=== PATIENT | male | born 1955 | race African-American/Black ===

== ENCOUNTER 2019-12-09 12:30 | Inpatient (IN) | payer SELFPAY ==
[2019-12-09 13:26] LABS: ABSOLUTE LYMPHOCYTES (AUTO) 1.5 10^3/uL (0.5-4.7); ABSOLUTE MONOCYTES (AUTO) 0.8 10^3/uL (0.1-1.4); ABSOLUTE NEUT (AUTO) 5.8 10^3/uL (1.7-8.2); BASOPHILS % (AUTO) 0.2 % (0-2); EOSINOPHILS % (AUTO) 0.2 % (0-6); HEMATOCRIT 35.6 % (37.9-51.0); HEMOGLOBIN 11.7 g/dL (13.5-17.0); LYMPHOCYTES % (AUTO) 18.4 % (13-45); MEAN CORPUSCULAR HEMOGLOBIN 30.2 pg (27.0-33.4); MEAN CORPUSCULAR HGB CONC 32.9 g/dL (32.0-36.0); MEAN CORPUSCULAR VOLUME 92 fl (80-97); MONOCYTES % (AUTO) 10.2 % (3-13); PLATELET COUNT 153 10^3/uL (150-450); RED BLOOD COUNT 3.88 10^6/uL (4.35-5.55); RED CELL DISTRIBUTION WIDTH 16.3 % (11.5-14.0); TOTAL CELLS COUNTED % (AUTO) 100 %; WHITE BLOOD COUNT 8.1 10^3/uL (4.0-10.5)
--- NOTE | 2019-12-09 13:31 | ER Document Report ---
ED GI Bleed / Rectal Pain - General Chief Complaint: Rectal Bleeding Stated Complaint: BLOODY STOOLS Time Seen by Provider: 12/09/19 13:18 Mode of Arrival: Ambulatory Information source: Patient Notes: Patient is a 64-year-old male comes emergency room complaining of black tarry stools and vomiting. Patient states symptoms started approximately 2 days ago. He has noticed that his stools have been very tacky and black appearing. He also states he has been throwing up some blood mixed with his vomitus. Complains of dizzy spells when going from a sitting position to standing or laying to standing. Patient denies taking any anticoagulants with the exception of a baby aspirin a day. He has a past medical history pertinent for hypertension but has not seen a physician in approximately 2 years. He is currently taking no prescribed medications. He admits to smoking. He also admits to alcohol use stating he drinks approximately 2 to 3 pints of wine every other day or so and an occasional beer. He denies any chest pain but states he has had some shortness of breath recently. TRAVEL OUTSIDE OF THE [place] IN LAST 30 DAYS: No - HPI Patient complains to provider of: Coffee ground emesis, Dark/tarry stools Onset: Other - 2 days Timing/Duration: Constant Quality of pain: No pain Severity of symptoms: Moderate Pain Level: 2 Vomiting X: 3 Diarrhea X: 0 Emesis description: Coffee grounds Rectal bleeding: Blood mixed w/ stool Dark Stools: Black, Tarry Rectal foreign body: No Rectal pain with intercourse: No Use of: ASA Associated symptoms: denies: Back pain, Abdominal pain, Constipation Exacerbated by: Sitting, Standing, Movement Similar symptoms previously: No Recently seen / treated by doctor: No - Related Data Allergies/Adverse Reactions: No Known Allergies Allergy (Verified 07/18/15 11:50) Home Medications: albbuterol, ASA Past Medical History - General Information source: Patient - Social History Smoking Status: Current Every Day Smoker Cigarette use (# per day): Yes Chew tobacco use (# tins/day): No Smoking Education Provided: No Frequency of alcohol use: Heavy Drug Abuse: Marijuana Family History: Reviewed & Not Pertinent Patient has suicidal ideation: No Patient has homicidal ideation: No - Past Medical History Cardiac Medical History: Reports: Hx Hypertension Denies: Hx Coronary Artery Disease, Hx Heart Attack Pulmonary Medical History: Reports: Hx COPD Denies: Hx Asthma, Hx Bronchitis, Hx Pneumonia Neurological Medical History: Denies: Hx Cerebrovascular Accident, Hx Seizures Endocrine Medical History: Denies: Hx Diabetes Mellitus Type 2 GI Medical History: Denies: Hx Gastritis, Hx Gastroesophageal Reflux Disease, Hx Hepatitis, Hx Hiatal Hernia, Hx Ulcer Musculoskeletal Medical History: Denies Hx Arthritis, Denies Hx Gout - denies previous history Skin Medical History: Denies Hx Cellulitis, Denies Hx MRSA Psychiatric Medical History: Reports: Hx Anxiety Infectious Medical History: Denies: Hx Hepatitis Past Surgical History: Reports: Hx Orthopedic Surgery - left foot. Denies: Hx Open Heart Surgery, Hx Pacemaker - Immunizations Hx Diphtheria, Pertussis, Tetanus Vaccination: No Review of Systems - Review of Systems Constitutional: See HPI, Weakness EENT: No symptoms reported Cardiovascular: No symptoms reported, Heart racing Respiratory: Short of breath Gastrointestinal: Vomiting, Poor appetite, Poor fluid intake, Black stools Genitourinary: No symptoms reported Male Genitourinary: No symptoms reported Musculoskeletal: No symptoms reported Skin: No symptoms reported Hematologic/Lymphatic: No symptoms reported Neurological/Psychological: No symptoms reported Physical Exam - Vital signs Vitals: Temp Pulse Resp BP Pulse Ox 98.3 F 128 H 19 115/91 H 98 12/09/19 12:32 12/09/19 12:32 12/09/19 12:32 12/09/19 12:32 12/09/19 12:32 Interpretation: Hypotensive, Tachycardic - Notes Notes: PHYSICAL EXAMINATION: GENERAL: Patient is a frail-appearing 64-year-old male who is in no apparent distress on physical exam however he does appear to be somewhat weakened state. HEAD: Atraumatic, normocephalic. EYES: Pupils equal round and reactive to light, extraocular movements intact, sclera anicteric, conjunctiva are normal. ENT: Nares patent, oropharynx shows somewhat dry oral mucosa.. NECK: Normal range of motion, supple without lymphadenopathy LUNGS: Breath sounds clear to auscultation bilaterally and equal. No wheezes rales or rhonchi. HEART: On examination patient displayed a tachycardic presentation of anywhere between 125 to 140 bpm depending on activity. Any movement caused it to increase. ABDOMEN: Soft, nontender, nondistended abdomen. No guarding, no rebound. No masses appreciated. Examination patient's rectal area shows there to be what appears to be partial rectal prolapse on examination digital rectal did show a large amount of maroonish to tarry black stools. Musculoskeletal: Normal range of motion, no pitting or edema. No cyanosis. NEUROLOGICAL: Normal speech, normal gait. Normal sensory, motor exams PSYCH: Normal mood, normal affect. SKIN: Warm, Dry, normal turgor, no rashes or lesions noted. - General General appearance: Alert In distress: None - HEENT Head: Normocephalic, Atraumatic Eyes: Normal Pupils: PERRL - Respiratory Respiratory status: No respiratory distress Chest status: Nontender Breath sounds: Decreased air movement. No: Rales, Rhonchi, Wheezing Chest palpation: Normal - Cardiovascular Rhythm: Regular Heart sounds: Normal auscultation Murmur: No - Abdominal Inspection: Normal Distension: No distension Bowel sounds: Normal Tenderness: Nontender Organomegaly: No organomegaly - Back Back: Normal, Nontender - Extremities General upper extremity: Normal inspection, Nontender, Normal color, Normal ROM, Normal temperature General lower extremity: Normal inspection, Nontender, Normal color, Normal ROM, Normal temperature, Normal weight bearing. No: Kaykay's sign - Neurological Neuro grossly intact: Yes Cognition: Normal Orientation: AAOx4 Robin Coma Scale Eye Opening: Spontaneous Robin Coma Scale Verbal: Oriented Robin Coma Scale Motor: Obeys Commands Mckean Coma Scale Total: 15 Speech: Normal Motor strength normal: LUE, RUE, LLE, RLE Sensory: Normal - Psychological Associated symptoms: Normal affect, Normal mood - Skin Skin Temperature: Warm Skin Moisture: Dry Skin Color: Normal Course - Re-evaluation Re-evalutation: 12/09/19 16:57 After receiving the first liter fluid patient's vital signs stabilized he is heart rate came down to below 100 and his blood pressure went up from 110 systolic 225/75. - Vital Signs Vital signs: Temp Pulse Resp BP Pulse Ox 98.5 F 83 16 127/54 H 99 12/09/19 23:24 12/09/19 23:24 12/09/19 23:24 12/09/19 23:24 12/09/19 23:24 - Laboratory Result Diagrams: 12/09/19 19:47 12/09/19 12:43 Laboratory results interpreted by me: 12/09/19 12/09/19 12:43 12:43 RBC 3.88 L Hgb 11.7 L Hct 35.6 L RDW 16.3 H Sodium 136.9 L Potassium 3.4 L BUN 36 H Glucose 136 H AST 16 L Albumin 3.1 L - Diagnostic Test Radiology reviewed: Reports reviewed - CT of the abdomen pelvis with IV contrast showed no acute findings. Chest x-ray also showed no acute findings. - EKG Interpretation by Me Rate: Tachycardia When compared to previous EKG there are: No significant change - Transfer of Care Notes: 12/09/19 16:59 Prior to calling the hospitalist the general surgeon Dr. Hernadez was in the emergency room so I discussed patient's care with him. He has been informed and suggested that we can go ahead and admit to the hospitalist and consult him. He will see patient. Discharge - Discharge Clinical Impression: Upper GI bleed Condition: Stable Disposition: ADMITTED INPATIENT Admitting Provider: Aristeo (Hospitalist)
[2019-12-09 13:33] LABS: ALBUMIN 3.1 g/dL (3.5-5.0); ALKALINE PHOSPHATASE 67 U/L (38-126); ANION GAP 12 (5-19); ASPARTATE AMINO TRANSFERASE 16 U/L (17-59); BILIRUBIN,TOTAL 0.5 mg/dL (0.2-1.3); BLOOD UREA NITROGEN 36 mg/dL (7-20); CALCIUM 8.8 mg/dL (8.4-10.2); CARBON DIOXIDE 26 mmol/L (22-30); CHLORIDE 99 mmol/L (98-107); GLUCOSE 136 mg/dL (75-110); POTASSIUM 3.4 mmol/L (3.6-5.0); TOTAL PROTEIN 6.9 g/dL (6.3-8.2)
[2019-12-09] MEDS ORDERED: PANTOPRAZOLE SODIUM 40 MG VIAL IV ONE (13:42)
[2019-12-09] MEDS ORDERED: NORMAL SALINE 1000 ML 1,000 ML IV ONE (13:44)
[2019-12-09] MEDS ORDERED: PANTOPRAZOLE SODIUM 40 MG VIAL IV PRN (13:48)
--- NOTE | 2019-12-09 14:39 | RADIOLOGY REPORT (SQ) ---
EXAM DESCRIPTION: CHEST SINGLE VIEW IMAGES COMPLETED DATE/TIME: 12/09/2019 2:25 pm REASON FOR STUDY: SOB COMPARISON: PA and lateral views of the chest from 12/22/2015. EXAM PARAMETERS: NUMBER OF VIEWS: One view. TECHNIQUE: An AP view of the chest was obtained. RADIATION DOSE: NA LIMITATIONS: None. FINDINGS: LUNGS AND PLEURA: No consolidation, pleural effusion or pneumothorax. MEDIASTINUM AND HILAR STRUCTURES: No mediastinal or hilar contour abnormality. HEART AND VASCULAR STRUCTURES: The cardiac silhouette and pulmonary vasculature are within normal marsh its. BONES: No acute findings. HARDWARE: None in the chest. OTHER: No other finding. IMPRESSION: No acute cardiopulmonary process. TECHNICAL DOCUMENTATION: JOB ID: [id number] 2010 [employer]- All Rights Reserved Reading location - IP/workstation name: [email or web address]
--- NOTE | 2019-12-09 15:14 | RADIOLOGY REPORT (SQ) ---
EXAM DESCRIPTION: CT ABD/PELVIS WITH IV ONLY IMAGES COMPLETED DATE/TIME: 12/09/2019 2:55 pm REASON FOR STUDY: Abd pain GI bleed COMPARISON: None. TECHNIQUE: CT scan of the abdomen and pelvis performed using helical scanning technique with dynamic intravenous contrast injection. No oral contrast. Images reviewed with lung, soft tissue, and bone windows. Reconstructed coronal and sagittal MPR images reviewed. Delayed images for evaluation of the urinary system also acquired. All images stored on PACS. All CT scanners at this facility use dose modulation, iterative reconstruction, and/or weight based d osing when appropriate to reduce radiation dose to as low as reasonably achievable (ALARA). [facility]: Dose Right [facility]: CareDose [facility]: Dose Right [facility]: Teradose 4D [facility]: [employer] CONTRAST TYPE AND DOSE: Contrast/concentration: Isovue 350.00 mg/ml; Total Contrast Delivered: 88.0 ml; Total Saline Delivered: 70.0 ml RENAL FUNCTION: GFR > 60. RADIATION DOSE: CT Rad equipment meets quality standard of care and radiation dose reduction techniq ues were employed. CTDIvol: 5.5 - 7.1 mGy. DLP: 619 mGy-cm. LIMITATIONS: None. FINDINGS: LOWER CHEST: Hiatal hernia. LIVER: The morphology of the liver is noncirrhotic. The portal veins are patent. There is no hepati c mass. SPLEEN: No splenomegaly or splenic mass. PANCREAS: No acute abnormality of the pancreas. GALLBLADDER: No abnormality that is apparent on CT. ADRENAL GLANDS: No mass or asymmetry. RIGHT KIDNEY AND URETER: No solid masses. No calcifications. No hydronephrosis or hydroureter. LEFT KIDNEY AND URETER: No solid masses. No calcifications. No hydronephrosis or hydroureter. AORTA AND VESSELS: No aneurysm or dissection of the abdominal aorta. RETROPERITONEUM: No retroperitoneal adenopathy, hemorrhage or mass. BOWEL AND PERITONEAL CAVITY: No bowel obstruction, bowel wall thickening or pericolonic/ perienteric inflammation. No mesenteric adenopathy, free intraperitoneal fluid or mesenteric/ omental inflammati on. APPENDIX: Unable to identify the appendix. There is no pericecal inflammation. PELVIS: The prostate gland is enlarged. There is no abnormality of the urinary bladder. ABDOMINAL WALL: No mass or hernia. BONES: Chronic fractures of several bilateral ribs and degenerative spondylosis/ facet arthropathy of the lumbar spine. OTHER: No other finding. IMPRESSION: 1. No acute intraabdominal abnormality. 2. Prostatomegaly. TECHNICAL DOCUMENTATION: JOB ID: [id number] Quality ID # [id number]: Final reports with documentation of one or more dose reduction techniques (e.g., Au tomated exposure control, adjustment of the mA and/or kV according to patient size, use of iterative reconstruction technique) 2010 [employer]- All Rights Reserved Reading location - IP/workstation name: [email or web address]
[2019-12-09] MEDS: NORMAL SALINE 1000 ML 1,000 ML IV PRN ×2 (16:02→17:13)
[2019-12-09] MEDS ORDERED: ONDANSETRON HCL INJ/PF 4 MG/2 ML SDV IV PRN (17:21)
--- NOTE | 2019-12-09 17:45 | PDOC H&P ---
History of Present Illness History of Present Illness: AZAR LEON is a 64 year old male who apparently has a history of COPD but still smokes approximately 1 pack a day and does not use any medications at home for it, and he presents with a 3-day history of hematemesis and dark stools. He said he was cutting grass a few days ago when he got sick to his stomach and threw up. He said it was a dark brown color. There was nothing solid in it. He said it happened to him several more times over the next few days. He said his stools were darker color as well. He did not have any abdominal pain. He did not have any fevers. He has not been regularly taking any NSAIDs. He does admit to drinking about 3 quart sized bottles of wine that he gets from a gas station every day. He said he used to drink much more heavily, mostly liquor, but he has cut it down to what he drinks now. He got a little bit tearful when he was telling me about it. He does not have any abdominal pain now, and no nausea, but he did vomit once in the ER. His vital signs are stable and his hemoglobin is low normal. He has never had an EGD before. He has never had any abdominal surgery. No family history of colon cancer. Dr. Hernadez was in the ER and looked on the patient and agreed to consult on the case. Past Medical History Cardiac Medical History: Reports: Hypertension Denies: Coronary Artery Disease, Myocardial Infarction Pulmonary Medical History: Reports: Chronic Obstructive Pulmonary Disease (COPD) Denies: Asthma, Bronchitis, Pneumonia Neurological Medical History: Denies: Seizures Endocrine Medical History: Denies: Diabetes Mellitus Type 2 GI Medical History: Denies: Gastroesophageal Reflux Disease, Hepatitis, Hiatal Hernia Musculoskeltal Medical History: Denies: Arthritis, Gout - denies previous history Hematology: Denies: Anemia, Sickle Cell Disease Past Surgical History Past Surgical History: Reports: Orthopedic Surgery - left foot Denies: Pacemaker Social History Information Source: Patient Lives with: Spouse/Significant other Smoking Status: Current Every Day Smoker Cigarettes Packs Per Day: 1 Electronic Cigarette use?: No Frequency of Alcohol Use: Heavy - Daily Last Alcohol Use: 12/09/19 Hx Recreational Drug Use: Yes Drugs: Marijuana Hx Prescription Drug Abuse: No Family History Family History: Reviewed & Not Pertinent, Arthritis, COPD, Hyperlipidemia, Hypertension Parental Family History Reviewed: Yes Children Family History Reviewed: Yes Sibling(s) Family History Reviewed.: Yes Medication/Allergy Home Medications: Aspirin [Ecotrin 81 mg EC Tablet] 81 mg PO DAILY 12/09/19 Cholecalciferol (Vitamin D3) [Vitamin D3 1000 Unit Tablet] 1,000 unit PO DAILY 12/09/19 Allergies/Adverse Reactions: No Known Allergies Allergy (Verified 07/18/15 11:50) Review of Systems All systems: reviewed and no additional remarkable complaints except as stated - All systems were reviewed and were negative except as noted in the HPI Physical Exam Vital Signs: Temp Pulse Resp BP Pulse Ox 98.8 F 128 H 25 H 140/91 H 100 12/09/19 16:02 12/09/19 12:32 12/09/19 17:00 12/09/19 17:00 12/09/19 17:00 Intake & Output 12/08/19 12/09/19 12/10/19 06:59 06:59 06:59 Intake Total 1999 Balance 1999 Weight 77.111 kg General appearance: PRESENT: no acute distress, cooperative, disheveled Head exam: PRESENT: atraumatic, normocephalic Eye exam: PRESENT: EOMI, PERRLA. ABSENT: scleral icterus Ear exam: PRESENT: normal external ear exam Mouth exam: PRESENT: dry mucosa, neck supple Teeth exam: PRESENT: poor dentation Throat exam: ABSENT: post pharyngeal erythema Neck exam: PRESENT: full ROM. ABSENT: carotid bruit, JVD, lymphadenopathy, meningismus, tenderness, thyromegaly Respiratory exam: PRESENT: clear to auscultation caity, symmetrical, unlabored. ABSENT: accessory muscle use, chest wall tenderness, crackles, prolonged expiratory phas, rhonchi, tachypnea, wheezes Cardiovascular exam: PRESENT: RRR, +S1, +S2 Pulses: PRESENT: normal carotid pulses Vascular exam: PRESENT: normal capillary refill GI/Abdominal exam: PRESENT: normal bowel sounds, soft. ABSENT: distended, guarding, tenderness Rectal exam: PRESENT: heme (-) stool Extremities exam: ABSENT: clubbing, pedal edema Musculoskeletal exam: PRESENT: normal inspection. ABSENT: deformity Neurological exam: PRESENT: alert, awake, oriented to person, oriented to place, oriented to time, oriented to situation, CN II-XII grossly intact. ABSENT: motor sensory deficit Psychiatric exam: PRESENT: appropriate affect, normal mood Skin exam: PRESENT: dry, warm Results Laboratory Results: 12/09/19 12:43 12/09/19 12:43 12/09/19 12/09/19 12/09/19 12:43 12:43 12:43 WBC 8.1 RBC 3.88 L Hgb 11.7 L Hct 35.6 L MCV 92 MCH 30.2 MCHC 32.9 RDW 16.3 H Plt Count 153 Seg Neutrophils % 71.0 Sodium 136.9 L Potassium 3.4 L Chloride 99 Carbon Dioxide 26 Anion Gap 12 BUN 36 H Creatinine 0.90 Est GFR ( Amer) > 60 Glucose 136 H Calcium 8.8 Total Bilirubin 0.5 AST 16 L Alkaline Phosphatase 67 Total Protein 6.9 Albumin 3.1 L Blood Type A NEGATIVE Antibody Screen NEGATIVE 12/09/19 12:43 Troponin I 0.014 Impressions: Abdomen/Pelvis CT 12/09/19 14:10 IMPRESSION: 1. No acute intraabdominal abnormality. 2. Prostatomegaly. Chest X-Ray 12/09/19 14:12 IMPRESSION: No acute cardiopulmonary process. Assessment and Plan - Diagnosis (1) Upper GI bleed Is this a current diagnosis for this admission?: Yes Plan: Let him have clear liquids tonight and then he will be n.p.o. after midnight for procedure in the morning. He will need an EGD. Working to keep him on a Pro tonix drip. H&H every 6 hours. No need for transfusion at this time. (2) COPD (chronic obstructive pulmonary disease) Qualifiers: COPD type: chronic bronchitis Chronic bronchitis type: simple Qualified Code(s): J41.0 - Simple chronic bronchitis Is this a current diagnosis for this admission?: Yes Plan: Not exacerbated, on no home medications currently (3) Current every day smoker Is this a current diagnosis for this admission?: Yes Plan: Counseled regarding the health risks of smoking. Strongly encourage cessation. (4) Alcohol abuse Is this a current diagnosis for this admission?: Yes Plan: We will monitor for signs and symptoms of withdrawal. We will give him some supplemental vitamins. Strongly counseled program of cessation. - Time Time Spent with patient: 35 or more minutes - Inpatient Certification Based on my medical assessment, after consideration of the patient's comorbidities, presenting symptoms, or acuity I expect that the services needed warrant INPATIENT care.: Yes I certify that my determination is in accordance with my understanding of Medicare's requirements for reasonable and necessary INPATIENT services [42 CFR 412.3e].: Yes Medical Necessity: Significant Comorbidiites Make Outpatient Treatment Too Risky, Need Close Monitoring Due to Risk of Patient Decompensation, Need For IV Fluids, Need For Continuous Telemetry Monitoring, Need for Surgery, Risk of Complication if Not Cared For in Hospital
[2019-12-09] MEDS: RINGERS SOLUTION,LACTATED 1,000 ML IV PRN (18:15)
--- NOTE | 2019-12-09 19:18 | EKG REPORT ---
SEVERITY:- ABNORMAL ECG - SINUS TACHYCARDIA WITH IRREGULAR RATE 86-153 LVH WITH SECONDARY REPOLARIZATION ABNORMALITY BORDERLINE PROLONGED QT INTERVAL : Confirmed by: Dayton Middleton MD 09-Dec-2019 19:17:19
[2019-12-09 20:03] LABS: HEMATOCRIT 28.6 % (37.9-51.0); MEAN CORPUSCULAR HEMOGLOBIN 30.3 pg (27.0-33.4); MEAN CORPUSCULAR HGB CONC 33.3 g/dL (32.0-36.0); MEAN CORPUSCULAR VOLUME 91 fl (80-97); PLATELET COUNT 135 10^3/uL (150-450); RED BLOOD COUNT 3.14 10^6/uL (4.35-5.55)
[2019-12-09 20:03] LABS: APPEARANCE,URINE CLEAR; BILIRUBIN,URINE NEGATIVE (NEGATIVE); COLOR,URINE YELLOW; GLUCOSE, URINE NEGATIVE (NEGATIVE); KETONES,URINE NEGATIVE (NEGATIVE); LEUKOCYTE ESTERASE,URINE TRACE (NEGATIVE); NITRITE,URINE NEGATIVE (NEGATIVE); PROTEIN,URINE NEGATIVE (NEGATIVE); URINE SPECIFIC GRAVITY 1.053; UROBILINOGEN,URINE NEGATIVE mg/dL (<2.0)
[2019-12-09 20:33] LABS: HEMOGLOBIN 9.5 g/dL (13.5-17.0)
[2019-12-09] MEDS: PANTOPRAZOLE SODIUM 40 MG VIAL IV SCH (21:51)
[2019-12-10 03:05] LABS: HEMATOCRIT 26.1 % (37.9-51.0); HEMOGLOBIN 8.7 g/dL (13.5-17.0); MEAN CORPUSCULAR HEMOGLOBIN 30.2 pg (27.0-33.4); MEAN CORPUSCULAR HGB CONC 33.3 g/dL (32.0-36.0); MEAN CORPUSCULAR VOLUME 91 fl (80-97); PLATELET COUNT 142 10^3/uL (150-450); RED BLOOD COUNT 2.88 10^6/uL (4.35-5.55); RED CELL DISTRIBUTION WIDTH 16.4 % (11.5-14.0); WHITE BLOOD COUNT 10.7 10^3/uL (4.0-10.5)
[2019-12-10 03:10] LABS: BLOOD UREA NITROGEN 19 mg/dL (7-20); CALCIUM 7.5 mg/dL (8.4-10.2); CARBON DIOXIDE 27 mmol/L (22-30); CHLORIDE 105 mmol/L (98-107); GLUCOSE 93 mg/dL (75-110); POTASSIUM 3.4 mmol/L (3.6-5.0)
[2019-12-10 03:19] LABS: ANION GAP 4 (5-19)
[2019-12-10] MEDS: RINGERS SOLUTION,LACTATED 1,000 ML IV PRN ×2 (05:30→10:43)
--- NOTE | 2019-12-10 05:42 | PDOC CONSULTATION ---
Consultation Consult Date: 12/10/19 Provider Consulted: SURGICAL SURGICALIST MD Consult reason:: hematemesis History of Present Illness Admission Date/PCP: 12/09/19 17:39 History of Present Illness: AZAR LEON is a 64 year old male seen in consultation at the request of the hospitalist service. The patient has a long history of heavy alcohol use/abuse. He denies any history of cirrhosis or known gastric/esophageal varices. The patient reports that 2 days ago he had an episode of hematemesis at home. He began having severe nausea, that worsened. He has vomited several more times since then. He had a witnessed episode of hematemesis in the emergency department. Patient also reports melanotic stool. He presented to the ER for evaluation of these symptoms. Patient does report feeling lightheaded when standing. He denies any chest pain, shortness of breath, fevers, chills, abdominal pain, headache, blurry vision. His last colonoscopy was done by Dr. Amezquita 2 to 3 years ago. He reports that colon polyps were removed at that time. He is unsure if he is ever had a EGD in the past. He does take aspirin at home, but denies any other home medications. Nothing appears to make his symptoms better or worse. Past Medical History Cardiac Medical History: Reports: Hypertension Denies: Coronary Artery Disease, Myocardial Infarction Pulmonary Medical History: Reports: Chronic Obstructive Pulmonary Disease (COPD) Denies: Asthma, Bronchitis, Pneumonia Neurological Medical History: Denies: Seizures Endocrine Medical History: Denies: Diabetes Mellitus Type 2 GI Medical History: Denies: Gastroesophageal Reflux Disease, Hepatitis, Hiatal Hernia Musculoskeltal Medical History: Denies: Arthritis, Gout - denies previous history Psychiatric Medical History: Denies: Depression Hematology: Denies: Anemia, Sickle Cell Disease Past Surgical History Past Surgical History: Reports: Orthopedic Surgery - left foot Denies: Pacemaker Social History Lives with: Spouse/Significant other Smoking Status: Current Every Day Smoker Cigarettes Packs Per Day: 1 Electronic Cigarette use?: No Frequency of Alcohol Use: Heavy Hx Recreational Drug Use: Yes Drugs: Marijuana Hx Prescription Drug Abuse: No Family History Family History: Reviewed & Not Pertinent Parental Family History Reviewed: Yes Children Family History Reviewed: Yes Sibling(s) Family History Reviewed.: Yes Medication/Allergy Home Medications: Aspirin [Ecotrin 81 mg EC Tablet] 81 mg PO DAILY 12/09/19 Cholecalciferol (Vitamin D3) [Vitamin D3 1000 Unit Tablet] 1,000 unit PO DAILY 12/09/19 Allergies/Adverse Reactions: No Known Allergies Allergy (Verified 07/18/15 11:50) Review of Systems Constitutional: PRESENT: fatigue. ABSENT: anorexia, chills, fever(s) Eyes: ABSENT: visual disturbances Ears: ABSENT: hearing changes Nose, Mouth, and Throat: ABSENT: sore throat Cardiovascular: ABSENT: chest pain Respiratory: ABSENT: cough, dyspnea Gastrointestinal: PRESENT: hematemesis, melena, nausea, vomiting. ABSENT: abdominal pain, bloating Genitourinary: ABSENT: dysuria Musculoskeletal: ABSENT: back pain Integumentary: ABSENT: pruritus, rash Neurological: ABSENT: confusion, convulsions, dizziness Psychiatric: ABSENT: anxiety, depression Endocrine: ABSENT: cold intolerance, heat intolerance Hematologic/Lymphatic: ABSENT: easy bleeding, easy bruising Physical Exam Vital Signs: Temp Pulse Resp BP Pulse Ox 98.2 F 78 18 113/62 97 12/10/19 04:00 12/10/19 04:00 12/10/19 04:00 12/10/19 04:00 12/10/19 04:00 Intake & Output 12/08/19 12/09/19 12/10/19 06:59 06:59 06:59 Intake Total 4304 Balance 4304 Weight 77 kg General appearance: PRESENT: no acute distress Head exam: PRESENT: atraumatic, normocephalic Eye exam: PRESENT: EOMI, PERRLA. ABSENT: scleral icterus Mouth exam: PRESENT: moist, neck supple Neck exam: ABSENT: meningismus, tenderness, thyromegaly, tracheal deviation Respiratory exam: PRESENT: unlabored. ABSENT: tachypnea, wheezes Cardiovascular exam: ABSENT: tachycardia Pulses: PRESENT: normal radial pulses Vascular exam: PRESENT: normal capillary refill. ABSENT: pallor GI/Abdominal exam: PRESENT: soft. ABSENT: distended, tenderness Rectal exam: PRESENT: deferred Extremities exam: ABSENT: clubbing Musculoskeletal exam: ABSENT: deformity Neurological exam: PRESENT: alert, awake, oriented to person, oriented to place, oriented to time, oriented to situation, CN II-XII grossly intact. ABSENT: motor sensory deficit Psychiatric exam: ABSENT: agitated, anxious, depressed Focused psych exam: ABSENT: delusional Skin exam: ABSENT: cyanosis, erythema, jaundice Results Laboratory Results: 12/10/19 02:51 12/10/19 02:51 12/09/19 12/09/19 12/09/19 12:43 12:43 12:43 WBC 8.1 RBC 3.88 L Hgb 11.7 L Hct 35.6 L MCV 92 MCH 30.2 MCHC 32.9 RDW 16.3 H Plt Count 153 Seg Neutrophils % 71.0 Sodium 136.9 L Potassium 3.4 L Chloride 99 Carbon Dioxide 26 Anion Gap 12 BUN 36 H Creatinine 0.90 Est GFR ( Amer) > 60 Glucose 136 H Calcium 8.8 Total Bilirubin 0.5 AST 16 L Alkaline Phosphatase 67 Total Protein 6.9 Albumin 3.1 L Urine Color Urine Appearance Urine pH Ur Specific [place] Urine Protein Urine Glucose (UA) Urine Ketones Urine Blood Urine Nitrite Ur Leukocyte Esterase Urine WBC (Auto) Urine RBC (Auto) Blood Type A NEGATIVE Antibody Screen NEGATIVE 12/09/19 12/09/19 12/10/19 18:50 19:47 02:51 WBC 13.0 H 10.7 H RBC 3.14 L 2.88 L Hgb 9.5 L D 8.7 L Hct 28.6 L 26.1 L MCV 91 91 MCH 30.3 30.2 MCHC 33.3 33.3 RDW 16.0 H 16.4 H Plt Count 135 L 142 L Seg Neutrophils % Sodium Potassium Chloride Carbon Dioxide Anion Gap BUN Creatinine Est GFR ( Amer) Glucose Calcium Total Bilirubin AST Alkaline Phosphatase Total Protein Albumin Urine Color YELLOW Urine Appearance CLEAR Urine pH 7.0 Ur Specific [place] 1.053 Urine Protein NEGATIVE Urine Glucose (UA) NEGATIVE Urine Ketones NEGATIVE Urine Blood SMALL H Urine Nitrite NEGATIVE Ur Leukocyte Esterase TRACE H Urine WBC (Auto) 2 Urine RBC (Auto) 2 Blood Type Antibody Screen 12/10/19 02:51 WBC RBC Hgb Hct MCV MCH MCHC RDW Plt Count Seg Neutrophils % Sodium 135.9 L Potassium 3.4 L Chloride 105 Carbon Dioxide 27 Anion Gap 4 L BUN 19 Creatinine 0.59 Est GFR ( Amer) > 60 Glucose 93 Calcium 7.5 L Total Bilirubin AST Alkaline Phosphatase Total Protein Albumin Urine Color Urine Appearance Urine pH Ur Specific [place] Urine Protein Urine Glucose (UA) Urine Ketones Urine Blood Urine Nitrite Ur Leukocyte Esterase Urine WBC (Auto) Urine RBC (Auto) Blood Type Antibody Screen 12/09/19 12/10/19 12:43 02:51 Troponin I 0.014 NT-Pro-B Natriuret Pep 295 H Impressions: Abdomen/Pelvis CT 12/09/19 14:10 IMPRESSION: 1. No acute intraabdominal abnormality. 2. Prostatomegaly. Chest X-Ray 12/09/19 14:12 IMPRESSION: No acute cardiopulmonary process. Assessment & Plan - Diagnosis (1) Hematemesis Qualifiers: Nausea presence: with nausea Qualified Code(s): K92.0 - Hematemesis Is this a current diagnosis for this admission?: Yes (2) Anemia Qualifiers: Anemia type: unspecified type Qualified Code(s): D64.9 - Anemia, unspecified Is this a current diagnosis for this admission?: Yes (3) Melena Is this a current diagnosis for this admission?: Yes (4) Alcohol abuse Is this a current diagnosis for this admission?: Yes - Plan Summary Plan Summary: This is a 64-year-old male admitted to the hospital with hematemesis and anemia. He has a long history of alcohol abuse. His hematemesis could be related to many things. Most likely are either alcoholic gastritis or gastric/esophageal varices. The patient has no history of varices or liver failure. Plan for EGD, to ascertain the source of his bleeding. If the patient has esophageal varices, he will require treatment by a eggs inspector/line installer repairer. His last colonoscopy was reportedly 2 to 3 years ago. Several small polyps were found. It is also conceivable that the patient could have an occult colonic malignancy, but this is much less likely. If EGD is completely normal, will plan for colonoscopy on this admission. Otherwise, the patient can follow-up with me as an outpatient for outpatient colonoscopy. Surgery will continue to follow with you.
[2019-12-10 08:28] LABS: HEMATOCRIT 25.9 % (37.9-51.0); HEMOGLOBIN 8.9 g/dL (13.5-17.0); MEAN CORPUSCULAR HEMOGLOBIN 30.9 pg (27.0-33.4); MEAN CORPUSCULAR HGB CONC 34.3 g/dL (32.0-36.0); MEAN CORPUSCULAR VOLUME 90 fl (80-97); PLATELET COUNT 134 10^3/uL (150-450); RED BLOOD COUNT 2.87 10^6/uL (4.35-5.55); RED CELL DISTRIBUTION WIDTH 16.1 % (11.5-14.0); WHITE BLOOD COUNT 9.7 10^3/uL (4.0-10.5)
[2019-12-10] MEDS ORDERED: EPINEPHRINE INJ 1 MG/10 ML DISP.SYRIN ONE (08:43)
[2019-12-10] MEDS ORDERED: PROPOFOL INJ 200 MG/20 ML VIAL IV ONE (08:47)
--- NOTE | 2019-12-10 10:13 | Operative Report ---
Nonrecallable Operative Report DATE OF SURGERY: 12/10/19 PREOPERATIVE DIAGNOSIS: Hematemesis POSTOPERATIVE DIAGNOSIS: Hematemesis OPERATION: Esophagogastroduodenoscopy SURGEON: DARWIN BELTRÁN ANESTHESIA: LMAC TISSUE REMOVED OR ALTERED: Biopsy of lesser curvature COMPLICATIONS: None ESTIMATED BLOOD LOSS: 0 INTRAOPERATIVE FINDINGS: Thickening along the lesser curvature PROCEDURE: Patient was brought to the operating awake alert stable condition placed in left lateral decubitus position given IV sedation for the procedure. After appropriate timeout and site verification the procedure commenced. The Olympus gastroscope was passed into the posterior pharynx and easily traversed the upper esophageal sphincter into the proximal esophagus we then traversed the esophagus into the stomach. Upon reaching the body the stomach it appeared to be normal without evidence of any bleeding or erythema. Scope was then slowly advanced through the antrum into the pylorus the pylorus appeared to be normal with bile refluxing into the stomach. The duodenal bulb also appeared to be normal without evidence of bleeding or ulcerations. We passed the scope to the second portion of the duodenum which all appeared to be normal without evidence of any bleeding or ulcers. The scope was slowly withdrawn back into the gastric into the antrum and that was again examined. As we slowly withdrew the scope the lesser curvature was seen and it appeared to be slightly thickened with flattened mucosa. I therefore obtained a biopsy of the lesser curvature. We then retroflexed the scope and noted a very small hiatal hernia without evidence of erythema. Scope was then straightened out and pulled back through the lower esophageal sphincter is the distal esophagus was examined and appeared to be normal without varices. Scope was then slowly withdrawn. Findings thickening along the lesser curvature. No evidence of any bleeding or ulcerations. Recommendations await biopsy results. Patient can be restarted on a diet. If patient's hematocrit is remained stable he could be discharged with a follow- up with his GI physician. He had polyps removed from his colon 2 to [address] Amezquita and probably will need a repeat colonoscopy in the near future. Please reconsult surgery as necessary.
[2019-12-10] MEDS: PANTOPRAZOLE SODIUM 40 MG VIAL IV SCH (10:40)
[2019-12-10 14:38] LABS: HEMATOCRIT 27.5 % (37.9-51.0); HEMOGLOBIN 9.2 g/dL (13.5-17.0); MEAN CORPUSCULAR HEMOGLOBIN 30.8 pg (27.0-33.4); MEAN CORPUSCULAR HGB CONC 33.5 g/dL (32.0-36.0); MEAN CORPUSCULAR VOLUME 92 fl (80-97); PLATELET COUNT 154 10^3/uL (150-450); RED BLOOD COUNT 2.99 10^6/uL (4.35-5.55); RED CELL DISTRIBUTION WIDTH 16.5 % (11.5-14.0)
[2019-12-10 16:48] VITALS: BP 143/73
--- NOTE | 2019-12-10 17:59 | PDOC DISCHARGE SUMMARY ---
Impression - Admit/DC Date/PCP Admission Date/Primary Care Provider: 12/09/19 17:39 Discharge Date: 12/10/19 - Discharge Diagnosis (1) Upper GI bleed Is this a current diagnosis for this admission?: Yes (2) COPD (chronic obstructive pulmonary disease) Is this a current diagnosis for this admission?: Yes (3) Current every day smoker Is this a current diagnosis for this admission?: Yes (4) Alcohol abuse Is this a current diagnosis for this admission?: Yes - Additional Information Resuscitation Status: Full Code Discharge Diet: Regular Discharge Activity: Activity As Tolerated Referrals: ARIS HERNADEZ MD [ACTIVE STAFF] - (2-3 weeks) Home Medications: Aspirin [Ecotrin 81 mg EC Tablet] 81 mg PO DAILY 12/09/19 Cholecalciferol (Vitamin D3) [Vitamin D3 1000 Unit Tablet] 1,000 unit PO DAILY 12/09/19 History of Present Illiness History of Present Illness: AZAR LEON is a 64 year old male who apparently has a history of COPD but still smokes approximately 1 pack a day and does not use any medications at home for it, and he presents with a 3-day history of hematemesis and dark stools. He said he was cutting grass a few days ago when he got sick to his stomach and threw up. He said it was a dark brown color. There was nothing solid in it. He said it happened to him several more times over the next few days. He said his stools were darker color as well. He did not have any abdominal pain. He did not have any fevers. He has not been regularly taking any NSAIDs. He does admit to drinking about 3 quart sized bottles of wine that he gets from a gas station every day. He said he used to drink much more heavily, mostly liquor, but he has cut it down to what he drinks now. He got a little bit tearful when he was telling me about it. He does not have any abdominal pain now, and no nausea, but he did vomit once in the ER. His vital signs are stable and his hemoglobin is low normal. He has never had an EGD before. He has never had any abdominal surgery. No family history of colon cancer. Dr. Hernadez was in the ER and looked on the patient and agreed to consult on the case. Hospital Course Hospital Course: Patient did not have any more episodes suspicious of bleeding. He did have some blood on his toilet paper but he said that he has hemorrhoids. He had an EGD that showed no source of bleeding. He did have one thickened area in the stomach and a biopsy was taken. He has a follow-up scheduled with Dr. Hernadez. He previously had had some colon polyps removed and will be scheduled for an outpatient colonoscopy. He has been eating and drinking without difficulty. I encouraged him to quit smoking and to cut back on his drinking. He verbalizes understanding. His labs and examination were reassuring he was discharged in stable condition. Physical Exam Vital Signs: Temp Pulse Resp BP Pulse Ox 98.8 F 86 24 H 127/61 H 96 12/10/19 15:26 12/10/19 15:26 12/10/19 15:26 12/10/19 15:26 12/10/19 15:26 Intake & Output 12/09/19 12/10/19 12/11/19 06:59 06:59 06:59 Intake Total 4304 1907 Output Total 0 Balance 4304 1907 Weight 77 kg General appearance: PRESENT: no acute distress, cooperative, disheveled Respiratory exam: PRESENT: clear to auscultation caity, symmetrical, unlabored. ABSENT: accessory muscle use, chest wall tenderness, crackles, prolonged expiratory phas, rhonchi, tachypnea, wheezes Cardiovascular exam: PRESENT: RRR, +S1, +S2 Pulses: PRESENT: normal carotid pulses Vascular exam: PRESENT: normal capillary refill GI/Abdominal exam: PRESENT: normal bowel sounds, soft. ABSENT: distended, guarding, rebound, tenderness Extremities exam: ABSENT: clubbing, pedal edema Musculoskeletal exam: PRESENT: normal inspection. ABSENT: deformity Neurological exam: PRESENT: alert, awake, oriented to person, oriented to place, oriented to situation Psychiatric exam: PRESENT: appropriate affect, normal mood Skin exam: PRESENT: dry, warm Results Laboratory Results: WBC 10.0 10^3/uL (4.0-10.5) 12/10/19 14: RBC 2.99 10^6/uL (4.35-5.55) L 12/10/19 14: Hgb 9.2 g/dL (13.5-17.0) L 12/10/19 14: Hct 27.5 % (37.9-51.0) L 12/10/19 14:29 MCV 92 fl (80-97) 12/10/19 14:29 MCH 30.8 pg (27.0-33.4) 12/10/19 14:29 MCHC 33.5 g/dL (32.0-36.0) 12/10/19 14:29 RDW 16.5 % (11.5-14.0) H 12/10/19 14:29 Plt Count 154 10^3/uL (150-450) 12/10/19 14:29 Lymph % (Auto) 18.4 % (13-45) 12/09/19 12:43 [place] % (Auto) 10.2 % (3-13) 12/09/19 12:43 Eos % (Auto) 0.2 % (0-6) 12/09/19 12:43 Baso % (Auto) 0.2 % (0-2) 12/09/19 12:43 Absolute Neuts (auto) 5.8 10^3/uL (1.7-8.2) 12/09/19 12:43 Absolute Lymphs (auto) 1.5 10^3/uL (0.5-4.7) 12/09/19 12:43 Absolute Monos (auto) 0.8 10^3/uL (0.1-1.4) 12/09/19 12:43 Absolute Eos (auto) 0.0 10^3/uL (0.0-0.6) 12/09/19 12:43 Absolute Basos (auto) 0.0 10^3/uL (0.0-0.2) 12/09/19 12:43 Seg Neutrophils % 71.0 % (42-78) 12/09/19 12:43 Platelet Estimate Cancelled 12/10/19 13:53 APTT 30.3 SEC (23.5-35.8) 12/10/19 02:51 Sodium 135.9 mmol/L (137-145) L 12/10/19 02:51 Potassium 3.4 mmol/L (3.6-5.0) L 12/10/19 02:51 Chloride 105 mmol/L (98-107) 12/10/19 02:51 Carbon Dioxide 27 mmol/L (22-30) 12/10/19 02:51 Anion Gap 4 (5-19) L 12/10/19 02:51 BUN 19 mg/dL (7-20) 12/10/19 02:51 Creatinine 0.59 mg/dL (0.52-1.25) 12/10/19 02:51 Est GFR ( Amer) > 60 (>60) 12/10/19 02:51 Est GFR (MDRD) Non-Af > 60 (>60) 12/10/19 02:51 Glucose 93 mg/dL (75-110) 12/10/19 02:51 Calcium 7.5 mg/dL (8.4-10.2) L 12/10/19 02:51 Total Bilirubin 0.5 mg/dL (0.2-1.3) 12/09/19 12:43 Direct Bilirubin 0.0 mg/dL (0.0-0.4) 12/09/19 12:43 Neonat Total Bilirubin Not Reportable 12/09/19 12:43 Neonat Direct Bilirubin Not Reportable 12/09/19 12:43 Neonat Indirect Bili Not Reportable 12/09/19 12:43 AST 16 U/L (17-59) L 12/09/19 12:43 ALT 8 U/L (<50) 12/09/19 12:43 Alkaline Phosphatase 67 U/L (38-126) 12/09/19 12:43 Troponin I 0.014 ng/mL 12/09/19 12:43 NT-Pro-B Natriuret Pep 295 pg/mL (<125) H 12/10/19 02:51 Total Protein 6.9 g/dL (6.3-8.2) 12/09/19 12:43 Albumin 3.1 g/dL (3.5-5.0) L 12/09/19 12:43 Urine Color YELLOW 12/09/19 18:50 Urine Appearance CLEAR 12/09/19 18:50 Urine pH 7.0 (5.0-9.0) 12/09/19 18:50 Ur Specific [place] 1.053 12/09/19 18:50 Urine Protein NEGATIVE mg/dL (NEGATIVE) 12/09/19 18:50 Urine Glucose (UA) NEGATIVE mg/dL (NEGATIVE) 12/09/19 18:50 Urine Ketones NEGATIVE mg/dL (NEGATIVE) 12/09/19 18:50 Urine Blood SMALL (NEGATIVE) H 12/09/19 18:50 Urine Nitrite NEGATIVE (NEGATIVE) 12/09/19 18:50 Urine Bilirubin NEGATIVE (NEGATIVE) 12/09/19 18:50 Urine Urobilinogen NEGATIVE mg/dL (<2.0) 12/09/19 18:50 Ur Leukocyte Esterase TRACE (NEGATIVE) H 12/09/19 18:50 Urine WBC (Auto) 2 /HPF 12/09/19 18:50 Urine RBC (Auto) 2 /HPF 12/09/19 18:50 Squamous Epi Cells Auto 1 /HPF 12/09/19 18:50 Urine Mucus (Auto) RARE /LPF 12/09/19 18:50 Urine Ascorbic Acid NEGATIVE (NEGATIVE) 12/09/19 18:50 POC Stool Occult Blood POSITIVE (NEGATIVE) 12/09/19 13:25 SARS-CoV-2 (PCR) NEGATIVE (NEGATIVE) 12/10/19 00:30 Slides for Path Review Cancelled 12/10/19 13:53 Blood Type A NEGATIVE 12/09/19 12:43 Antibody Screen NEGATIVE 12/09/19 12:43 12/09/19 12/10/19 12:43 02:51 Troponin I 0.014 NT-Pro-B Natriuret Pep 295 H Impressions: Abdomen/Pelvis CT 12/09/19 14:10 IMPRESSION: 1. No acute intraabdominal abnormality. 2. Prostatomegaly. Chest X-Ray 12/09/19 14:12 IMPRESSION: No acute cardiopulmonary process. Plan Time Spent: Greater than 30 Minutes Stroke Is this a Stroke Patient?: No Acute Heart Failure - Is this a Heart Failure Patient?: No
== END 2019-12-10 16:17 | disposition home or self-care (01) | DRG 379 ==
LOC: ER 12:30 → EH 17:39 → 4S 20:10
PROVIDERS: ADMIT Family Medicine; ATTEND Family Medicine
PROC: 0DD68ZX Extraction of Stomach, Via Natural or Artificial Opening Endoscopic, Diagnostic (ICD-10-PCS; principal; 2019-12-10 09:30)
DX: K92.0 Hematemesis (principal); K92.1 Melena; D64.9 Anemia, unspecified; I10 Essential (primary) hypertension; J44.9 Chronic obstructive pulmonary disease, unspecified; F41.9 Anxiety disorder, unspecified; F10.10 Alcohol abuse, uncomplicated; F12.90 Cannabis use, unspecified, uncomplicated; F17.210 Nicotine dependence, cigarettes, uncomplicated; Y90.9 Presence of alcohol in blood, level not specified; Z79.82 Long term (current) use of aspirin; Z03.818 Encounter for observation for suspected exposure to other biological agents ruled out
CPT/HCPCS: 36415; 43239; 71045; 731; 74177; 80048; 80053; 81001; 82270; 83880; 84484; 85025; 85027; 85730; 86850; 86900; 86901; 87635; 88305; 88342; 93005; 93010; 96365; 96366; 96376; 99140; 99285; C9113; J0171; J2704; J7030; J7120

== ENCOUNTER 2019-12-14 03:24 | Inpatient (IN) | payer SELFPAY ==
[2019-12-14] MEDS: NORMAL SALINE 1000 ML 1,000 ML IV PRN ×2 (03:35→03:50)
[2019-12-14] MEDS ORDERED: DIAZEPAM INJ 10 MG/2 ML DISP.SYRIN IV ONE (03:53)
[2019-12-14] MEDS ORDERED: SUCCINYLCHOLINE CHLORIDE INJ 200 MG/10 ML VIAL IV ONE (04:00)
[2019-12-14] MEDS ORDERED: ETOMIDATE INJ/PF 20 MG/10 ML SDV IV ONE ×2 (04:00→09:59)
[2019-12-14] MEDS ORDERED: LORAZEPAM INJ 2 MG/1 ML VIAL IV ONE ×3 (04:09→06:30)
[2019-12-14] MEDS ORDERED: VECURONIUM BROMIDE INJ 10 MG VIAL IV ONE ×3 (04:10→09:59)
[2019-12-14] MEDS ORDERED: NORMAL SALINE 250 ML IV PRN ×3 (04:20→06:25)
--- NOTE | 2019-12-14 05:02 | RADIOLOGY REPORT (SQ) ---
EXAM DESCRIPTION: [facility]: XR CHEST 1 VIEW CLINICAL HISTORY: 64 years Male; post ett; COMPARISON: 12/09/2019 FINDINGS: Lungs: Is mild interstitial edema in the left lower lobe, with slight elevation of left hemidiaphragm. Mild interstitial edema has also developed in the right upper lobe. No pneumothorax or significant pleural effusion. Mediastinum: Endotracheal tube is in place, approximately 5 cm above ammon. Enteric tube tip is less than 2-3 cm below the diaphragm, with the proximal sidehole in the distal esophagus. No mediastinal shift. Bones: Bony structures are unremarkable. IMPRESSION: 1. Intubated 2. Mild interstitial edema in the right upper lobe and left lower lobe with partial atelectasis of the left lower lobe. 3. Enteric tube tip is in the stomach, with the proximal sidehole is in the distal esophagus. Consider advancing approximately 8-9 cm.
--- NOTE | 2019-12-14 05:05 | ER Document Report ---
Entered by GEETHA ALEJANDRA SCRIBE 12/14/19 0337 Acting as scribe for:CAESAR ALY IV, MD ED GI/ - General Chief Complaint: Nausea/Vomiting/Diarrhea Stated Complaint: NAUSEA/VOMITING/DIARRHEA Mode of Arrival: Medic Information source: Patient, Emergency Med Personnel Notes: This 64 year old male patient with a history of HTN, COPD, and ETOH abuse brought in by EMS presents to the ED today with complaints of nausea/vomiting/diarrhea that started prior to arrival. Patient reports coffee ground emesis with blood and dark, tarry stools. Patient states that he was recently diagnosed here with an upper GI bleed on 12/09/2019. Patient had an EGD done by Dr. Urban, surgicalist on 12/10/2019 that showed a thickening in an area of the stomach, which was biopsied with results pending, but no source of bleeding. Patient was discharged with instructions to follow up with Dr. Hernadez, surgicalist. TRAVEL OUTSIDE OF THE [place] IN LAST 30 DAYS: No - Related Data Allergies/Adverse Reactions: No Known Allergies Allergy (Verified 07/18/15 11:50) Past Medical History - General Information source: Patient, [facility] Records - Social History Smoking Status: Current Every Day Smoker Cigarette use (# per day): Yes Chew tobacco use (# tins/day): No Smoking Education Provided: No Family History: Reviewed & Not Pertinent Patient has suicidal ideation: No Patient has homicidal ideation: No - Past Medical History Cardiac Medical History: Reports: Hx Hypertension Pulmonary Medical History: Reports: Hx COPD Psychiatric Medical History: Reports: Hx Anxiety Past Surgical History: Reports: Hx Orthopedic Surgery - left foot - Immunizations Hx Diphtheria, Pertussis, Tetanus Vaccination: No Review of Systems - Review of Systems Constitutional: No symptoms reported EENT: No symptoms reported Cardiovascular: No symptoms reported Respiratory: No symptoms reported Gastrointestinal: See HPI, Diarrhea, Nausea, Vomiting, Blood in vomit, Black stools Genitourinary: No symptoms reported Male Genitourinary: No symptoms reported Musculoskeletal: No symptoms reported Skin: No symptoms reported Hematologic/Lymphatic: No symptoms reported Neurological/Psychological: No symptoms reported -: Yes All other systems reviewed and negative Physical Exam - Vital signs Vitals: Resp 32 H 12/14/19 03:28 - General General appearance: Alert In distress: None - HEENT Head: Normocephalic, Atraumatic Eyes: Normal Pupils: PERRL - Respiratory Respiratory status: Tachypnea Chest status: Nontender Breath sounds: Normal Chest palpation: Normal - Cardiovascular Rhythm: Regular, Tachycardia Heart sounds: Normal auscultation Murmur: No Friction rub: No Gallop: None auscultated - Abdominal Inspection: Normal Distension: No distension Bowel sounds: Normal Tenderness: Nontender - Abdomen soft Organomegaly: No organomegaly - Rectal Stool: Black - liquid stool - Back Back: Normal, Nontender - Extremities General upper extremity: Normal inspection General lower extremity: Normal inspection - Neurological Neuro grossly intact: Yes - Psychological Associated symptoms: Normal affect, Normal mood - Skin Skin Temperature: Warm Skin Moisture: Dry Skin Color: Normal Course - Re-evaluation Re-evalutation: 12/14/19 05:49 Patient was noted to become unresponsive with what appeared to be generalized s eizure activity at approximately 0355 hrs. Patient's breathing became somewhat labored and he had an increased amount of secretions noted. Patient did not return to baseline spontaneously. This MD decided to intubate the patient for airway protection. Patient's was notified of patient's status at approximately 0500 hrs. by phone. - Vital Signs Vital signs: Temp Pulse Resp BP Pulse Ox 97.1 F 16 174/97 H 94 12/14/19 05:44 12/14/19 05:44 12/14/19 05:44 12/14/19 05:48 - Laboratory Result Diagrams: 12/14/19 04:11 12/14/19 04:11 Laboratory results interpreted by me: 12/14/19 12/14/19 12/14/19 04:11 04:11 04:11 PT 22.9 H APTT 36.0 H Sodium 135.4 L Carbon Dioxide 7 L* Anion Gap 22 H Calcium 7.0 L* Total Bilirubin < 0.1 L Alkaline Phosphatase 20 L Total Protein 3.4 L Albumin 1.4 L Crossmatch See Detail - Diagnostic Test Radiology reviewed: Reports reviewed - Consults pa araujo np, in home tutor service Time consulted: 06:22 - tayla araujo stated he would come see pt in ed Reason for consultation: 12/14/19 06:22 upper gi bleed, anemic, hypotensive, intubated Consulted provider: will come to ER Procedures - Intubation Orotracheal Time of Intubation: 04:07 Airway evaluation: Normal anatomy Mallampati Classification: Class 2 Medications: Etomidate, Succinylcholine Intubation method: Orotracheal Blade type: Kelly Blade size: 4 Equipment used: Glidescope ETT size: 8.0 ETT secured at: Lips ETT secured at (cm): 24 Breath Sounds after Intubation: Equal End tidal CO2 confirmed: Yes Post Intubation Xray: Yes Intubation Complications: No complications Critical Care Note - Critical Care Note Total time excluding time spent on procedures (mins): 120 Discharge - Discharge Clinical Impression: Upper GI bleed, Seizure Condition: Critical Disposition: ADMITTED INPATIENT Admitting Provider: Javier (Multi Craft Maintenance Technician) Unit Admitted: ICU I personally performed the services described in the documentation, reviewed and edited the documentation which was dictated to the scribe in my presence, and it accurately records my words and actions.
[2019-12-14 05:35] LABS: INTERNATIONAL RATION (INR) 1.99; PROTHROMBIN TIME 22.9 SEC (11.4-15.4)
[2019-12-14 05:36] LABS: ALBUMIN 1.4 g/dL (3.5-5.0); ALKALINE PHOSPHATASE 20 U/L (38-126); ASPARTATE AMINO TRANSFERASE 26 U/L (17-59); BLOOD UREA NITROGEN 14 mg/dL (7-20); GLUCOSE 76 mg/dL (75-110); POTASSIUM 4.8 mmol/L (3.6-5.0); TOTAL PROTEIN 3.4 g/dL (6.3-8.2)
[2019-12-14 05:49] LABS: CHLORIDE 106 mmol/L (98-107)
[2019-12-14 05:56] LABS: BILIRUBIN,TOTAL < 0.1 mg/dL (0.2-1.3)
[2019-12-14 05:58] LABS: ANION GAP 22 (5-19)
--- NOTE | 2019-12-14 06:02 | RADIOLOGY REPORT (SQ) ---
EXAM DESCRIPTION: CT HEAD WITHOUT IV CONTRAST COMPLETED DATE/TME: 12/14/2019 04:58 CLINICAL HISTORY: 64 years, Male, seizure COMPARISON: None. TECHNIQUE: 197 Images stored on PACS. All CT scanners at this facility use dose modulation, iterative reconstruction, and/or weight based dosing when appropriate to reduce radiation dose to as low as reasonably achievable (ALARA). [facility]: Dose Right [facility]: CareDose [facility]: Dose Right [facility]: Teradose 4D [facility]: PhotoShelter LIMITATIONS: None. FINDINGS: The globes are intact. Nasogastric tube partially visualized. Mucosal thickening of the nasal cavities. No displaced or depressed skull fracture. No acute intracranial hemorrhage. CT is limited for evaluation of acute infarct. No CT evidence for large or territorial acute infarct. No mass or midline shift IMPRESSION: No acute intracranial abnormality TECHNICAL DOCUMENTATION: Quality ID # 436: Final reports with documentation of one or more dose reduction techniques (e.g., Automated exposure control, adjustment of the mA and/or kV according to patient size, use of iterative reconstruction technique) copyright 2011 [employer]- All Rights Reserved
[2019-12-14] MEDS ORDERED: PANTOPRAZOLE SODIUM 40 MG VIAL IV ONE (06:06)
--- NOTE | 2019-12-14 06:16 | EKG REPORT ---
SEVERITY:- ABNORMAL ECG - SINUS TACHYCARDIA LVH WITH SECONDARY REPOLARIZATION ABNORMALITY ST DEPRESSION, PROBABLY RATE RELATED : Confirmed by: Dayton Middleton MD 14-Dec-2019 06:15:46
[2019-12-14 06:18] LABS: RED BLOOD COUNT 0.76 10^6/uL (4.35-5.55); WHITE BLOOD COUNT 10.5 10^3/uL (4.0-10.5)
[2019-12-14 06:19] LABS: MEAN CORPUSCULAR HEMOGLOBIN 30.9 pg (27.0-33.4); MEAN CORPUSCULAR HGB CONC 29.6 g/dL (32.0-36.0); PLATELET COUNT 168 10^3/uL (150-450); RED CELL DISTRIBUTION WIDTH 16.7 % (11.5-14.0)
[2019-12-14 06:21] LABS: HEMOGLOBIN 2.3 g/dL (13.5-17.0)
[2019-12-14] MEDS: PANTOPRAZOLE SODIUM 40 MG VIAL IV PRN ×3 (06:22→23:57)
[2019-12-14] MEDS ORDERED: CALCIUM GLUCONATE 1000 MG/10 ML INJ IV ONE (06:23)
[2019-12-14 06:24] LABS: ABSOLUTE LYMPHOCYTES# (MANUAL) 5.3 10^3/uL (0.5-4.7); ABSOLUTE MONOCYTES # (MANUAL) 0.3 10^3/uL (0.1-1.4); BASOPHILS % (MANUAL) 0 % (0-2); EOSINOPHILS % (MANUAL) 0 % (0-6); LYMPHOCYTES % (MANUAL) 50 % (13-45); MONOCYTES % (MANUAL) 3 % (3-13); SEGMENTED NEUTROPHILS % (MAN) 47 % (42-78); TOTAL CELLS COUNTED 100
[2019-12-14 06:26] LABS: ANISOCYTOSIS 1+; BURR CELLS SLIGHT; OVALOCYTES 1+; PLATELET COMMENT ADEQUATE; POLYCHROMASIA SLIGHT; TEAR DROP CELLS SLIGHT
[2019-12-14 06:34] LABS: MEAN CORPUSCULAR VOLUME 105 fl (80-97)
[2019-12-14] MEDS ORDERED: MIDAZOLAM 2 MG/2 ML INJ IV ONE ×2 (06:43→08:42)
[2019-12-14 06:47] LABS: PHOSPHORUS 4.7 mg/dL (2.5-4.5)
[2019-12-14 07:29] LABS: URINE AMPHETAMINES SCREEN NEGATIVE; URINE BARBITURATES SCREEN NEGATIVE; URINE BENZODIAZEPINES SCREEN NEGATIVE; URINE COCAINE SCREEN NEGATIVE; URINE METHADONE SCREEN NEGATIVE; URINE PHENCYCLIDINE SCREEN NEGATIVE
[2019-12-14 07:30] LABS: URINE MARIJUANA (THC) SCREEN UNCONFIRMED POSITIVE
[2019-12-14 08:20] LABS: ARTERIAL BLOOD FIO2 40%; ARTERIAL BLOOD H2CO3 1.07 mmol/L (1.05-1.35); ARTERIAL BLOOD HCO3 23.2 mmol/L (20-24); ARTERIAL BLOOD O2 SATURATION 97.7 % (94-98); ARTERIAL BLOOD PCO2 35.6 mmHg (35-45); ARTERIAL BLOOD PH 7.43 (7.35-7.45); ARTERIAL BLOOD PO2 99.8 mmHg (80-100); ARTERIAL BLOOD TOTAL CO2 24.2 mmol/L (23-27)
--- NOTE | 2019-12-14 08:44 | CRITICAL CARE ADMISSION REPORT ---
HPI Date:: 12/14/19 Time:: 06:45 Reason for ICU Reason:: Upper GI bleed, seizure, hypotension, encounter for weaning from mechanical ventilator HPI: Vishnu Lima is a 64-year-old male with a past medical history significant for alcohol abuse, smoking tobacco abuse, hypertension, anxiety, COPD, and recent discharge from an admission for upper gastrointestinal bleeding on December 09, 2019 who presented to [facility] this morning with a chief complaint of nausea, vomiting, & diarrhea. He was found to have coffee-ground emesis and dark tarry stools and lab work revealed a hemoglobin of 2.3 g/dL for which he has already received 2 PRBCs that were emergently released due to a deterioration in condition. Apparently Mr Lima was initially talking, though kind of mumbling and lethargic with the ER physician which progressed to a seizure for which he was intubated. To note, the patient has no history of seizures. He does however have an extensive history of alcohol abuse. An EGD performed on December 10, [address] Urban demonstrated thickening of the lesser curvature of the stomach for which a biopsy was performed and is pending, a small hiatal hernia, with no definitive source of bleeding identified. Other notable labs are a platelet count of 168,000, a serum bicarb of 7, and an INR of 1.99. History obtained from:: ER physician, medical record - Diagnosis/Plan (1) Upper GI bleed Is this a current diagnosis for this admission?: Yes Plan: Withhold ASA. Hopefully he has not resumed since recent discharge. Serial H&H, transfuse to Hgb 8 to stay ahead of bleeding. 2 FFP to infuse now for prolonged INR of 2. Two large bore patent 18g IV's already in place. Continue PPI infusion at 8 mg/hr. Dr Flores with surgery consulted for possible EGD as he is continuity director. He will see the patient. To note, Dr Urban did the previous EGD and Dr Hernadez was scheduled to do an outpatient colonoscopy. (2) Melena Is this a current diagnosis for this admission?: Yes Plan: plan as above If EGD negative, then may need colonoscopy despite the stool being melenotic without hematochezia. (3) Hematemesis Qualifiers: Nausea presence: with nausea Qualified Code(s): K92.0 - Hematemesis Is this a current diagnosis for this admission?: Yes Plan: as above OGT to low intermittent wall suction (4) Anemia due to acute blood loss Is this a current diagnosis for this admission?: Yes Plan: serial H&H/Plt count; transfuse prn to goal Hgb 8 to stay ahead of bleeding EGD (5) Encounter for weaning from ventilator Is this a current diagnosis for this admission?: Yes Plan: Continue mechanical ventilation today. Check ABG now and then re-evaluate ventilator settings. I personally weaned FiO2 from 100% to 40% while in the ED watching the SPO2 on the monitor. Elevate HOB >30, oral care q4h to prevent ventilator-associated event. It may be feasible to place him on SBT later today depending on how the day transpires. (6) History of COPD Is this a current diagnosis for this admission?: Yes Plan: Need an updated medication list. Will start prn duo-nebs. No need for steroids at this time unless it is discovered patient is on at baseline. (7) Tobacco abuse Is this a current diagnosis for this admission?: Yes Plan: Smoking cessation counseling prior to discharge. (8) Hypotension Qualifiers: Hypotension type: hypotension due to hypovolemia Qualified Code(s): I95.89 - Other hypotension; E86.1 - Hypovolemia Is this a current diagnosis for this admission?: Yes Plan: Administer more blood, then re-assess. (9) Hx of essential hypertension Is this a current diagnosis for this admission?: Yes Plan: Withholding anti-HTN therapy for now as patient was hypotensive and is anemia with hypovolemia. Needs medication reconciliation with family as there are no anti-HTN meds listed on ambulatory meds presently. (10) History of anxiety Is this a current diagnosis for this admission?: Yes Plan: Administer 4 mg of Versed x1 now given patient still has evidence of slight paralysis of extremities during encounter. May need prn anxiolytics during admission. (11) Alcohol abuse Is this a current diagnosis for this admission?: Yes Plan: -ER physician states he spoke with patient's and he no longer drinks EtOH. However, he was drinking recently before recent hospitalization. -Will place on Thiamine and Folate x3 days for now. Will discuss clarification with Dr Cochran. (12) Hypocalcemia Is this a current diagnosis for this admission?: Yes Plan: 1g Ca+ Gluconate given institutional shortage of Ca+ Cl- in setting of hypotension and due to receive several more blood products with citrate additive. Check ionized Ca+ later today. (13) Prolonged INR Is this a current diagnosis for this admission?: Yes Plan: 2 FFP now; repeat Coags prn Added fibrinogen on to coags currently in lab. Past Medical History Medical History: Other - obtained from medical record and ER physician as patient unable to provide this information at this time Cardiac Medical History: Reports: Hypertension Pulmonary Medical History: Reports: Chronic Obstructive Pulmonary Disease (COPD) Neurological Medical History: Reports: Seizures - no seizure Hx, though seized in ED 12/14/2019 GI Medical History: Reports: Hiatal Hernia - on EGD 12/10/2019 Psychiatric Medical History: Reports: General Anxiety Disorder Past Surgical History Past Surgical History: Reports: Orthopedic Surgery - left foot Social/Family History - Social History Lives with: Spouse/Significant other Smoking Status: Current Every Day Smoker - 1 PPD Frequency of Alcohol Use: Heavy - Documentation during recent hospitalization reports 3 quarts of wine daily that he procures from his local [employer]. Hx Recreational Drug Use: Yes Drugs: Marijuana Hx Prescription Drug Abuse: No - Medication/Allergies Home Medications: Aspirin [Ecotrin 81 mg EC Tablet] 81 mg PO DAILY 12/09/19 Cholecalciferol (Vitamin D3) [Vitamin D3 1000 Unit Tablet] 1,000 unit PO DAILY 12/09/19 Allergies/Adverse Reactions: No Known Allergies Allergy (Verified 07/18/15 11:50) Review of Systems ROS unobtainable: Due to endotracheal tube, Due to mental status Physical Exam Vital Signs: Temp Pulse Resp BP Pulse Ox 97.1 F 16 174/97 H 94 12/14/19 05:44 12/14/19 05:44 12/14/19 05:44 12/14/19 05:48 Intake & Output 12/12/19 12/13/19 12/14/19 06:59 06:59 06:59 Intake Total 1999 Balance 1999 General appearance: PRESENT: no acute distress, other - intubated Head exam: PRESENT: atraumatic, normocephalic Eye exam: PRESENT: conjunctiva pink, EOMI, PERRLA. ABSENT: periorbital swelling, scleral icterus Ear exam: PRESENT: normal external ear exam Mouth exam: PRESENT: moist, neck supple Neck exam: PRESENT: full ROM. ABSENT: JVD, lymphadenopathy, tracheal deviation Respiratory exam: PRESENT: clear to auscultation caity - after endotracheal suction performed by myself, symmetrical, unlabored. ABSENT: accessory muscle use, tachypnea Cardiovascular exam: PRESENT: +S1, +S2, tachycardia - sinus tachycardia HR 155. ABSENT: gallop, rubs, systolic murmur Pulses: PRESENT: normal radial pulses, +2 pedal pulses bilateral Vascular exam: PRESENT: normal capillary refill GI/Abdominal exam: PRESENT: hypoactive bowel sounds, soft. ABSENT: distended, guarding, rigid, tenderness Rectal exam: PRESENT: other - dark tarry stool per RN Gentrourinary exam: PRESENT: indwelling catheter Extremities exam: PRESENT: full ROM. ABSENT: joint swelling, pedal edema, tenderness Musculoskeletal exam: PRESENT: full ROM. ABSENT: deformity, dislocation, normal inspection, tenderness Neurological exam: PRESENT: awake - Awakening from ativan with paralytic that appears to be wearing off with muscle fasciculations and patient opening eyes to command. Asked ER physician to administer 4 mg of Versed x1., other - intubated Skin exam: PRESENT: dry, intact, warm. ABSENT: jaundice Tubes/Lines: PRESENT: Endotracheal Tube, Nasogastic Tube Laboratory/Radiographs Laboratory Results: 12/14/19 04:11 12/14/19 04:11 12/14/19 12/14/19 12/14/19 04:11 04:11 04:11 WBC 10.5 RBC 0.76 L Hgb 2.3 L* Hct 7.9 L* MCV 105 H D MCH 30.9 MCHC 29.6 L RDW 16.7 H Plt Count 168 Seg Neutrophils % Not Reportable Sodium 135.4 L Potassium 4.8 Chloride 106 Carbon Dioxide 7 L* Anion Gap 22 H BUN 14 Creatinine 0.96 Est GFR ( Amer) > 60 Glucose 76 Calcium 7.0 L* Total Bilirubin < 0.1 L AST 26 Alkaline Phosphatase 20 L Total Protein 3.4 L Albumin 1.4 L Lipase Blood Type A NEGATIVE Antibody Screen NEGATIVE 12/14/19 04:11 WBC RBC Hgb Hct MCV MCH MCHC RDW Plt Count Seg Neutrophils % Sodium Potassium Chloride Carbon Dioxide Anion Gap BUN Creatinine Est GFR ( Amer) Glucose Calcium Total Bilirubin AST Alkaline Phosphatase Total Protein Albumin Lipase 87.7 Blood Type Antibody Screen Impressions: Chest X-Ray 12/14/19 04:20 IMPRESSION: 1. Intubated 2. Mild interstitial edema in the right upper lobe and left lower lobe with partial atelectasis of the left lower lobe. 3. Enteric tube tip is in the stomach, with the proximal sidehole is in the distal esophagus. Consider advancing approximately 8-[address] 12/14/19 04:58 IMPRESSION: No acute intracranial abnormality TECHNICAL DOCUMENTATION: Quality ID # 436: Final reports with documentation of one or more dose reduction techniques (e.g., Automated exposure control, adjustment of the mA and/or kV according to patient size, use of iterative reconstruction technique) copyright 2011 [employer]- All Rights Reserved EKG: Sinus tachycardia with probable ST depression from acute blood loss causing demand ischemia. All labs, radiographs, diagnostic studies and EKGs were personally reviewed: Yes In addition, reports of radiographic and diagnostic studies were read: Yes Critical Time Critical Time (minutes): 60 -: The care of a critically ill patient is dynamic. This note represents a static moment in the admission process. Orders and treatments may be given simultaneously and urgently, and time is not student services representative of the treatment process. This patient requires Critical Care secondary to life threatening organ or limb dysfunction. Without Critical Care services, the patient is at risk for increased mortality and morbidity.
[2019-12-14 08:46] LABS: MEAN CORPUSCULAR HEMOGLOBIN 31.5 pg (27.0-33.4); MEAN CORPUSCULAR HGB CONC 34.5 g/dL (32.0-36.0); PLATELET COUNT 194 10^3/uL (150-450); RED BLOOD COUNT 1.86 10^6/uL (4.35-5.55); RED CELL DISTRIBUTION WIDTH 14.3 % (11.5-14.0); WHITE BLOOD COUNT 17.6 10^3/uL (4.0-10.5)
[2019-12-14 08:53] LABS: MEAN CORPUSCULAR VOLUME 91 fl (80-97)
[2019-12-14 08:54] LABS: HEMOGLOBIN 5.9 g/dL (13.5-17.0)
[2019-12-14] MEDS: RINGERS SOLUTION,LACTATED 1,000 ML IV PRN ×2 (09:14→22:27)
[2019-12-14] MEDS: MAGNESIUM SULFATE/D5W 1 GM/100 ML RTUPB IV SCH ×2 (09:15→11:07)
--- NOTE | 2019-12-14 09:58 | RADIOLOGY REPORT (SQ) ---
EXAM DESCRIPTION: CHEST SINGLE VIEW IMAGES COMPLETED DATE/TIME: 12/14/2019 9:29 am REASON FOR STUDY: Advancement of ET Tube COMPARISON: AP view of the chest from 12/14/2019. EXAM PARAMETERS: NUMBER OF VIEWS: One view. TECHNIQUE: An AP view of the chest was obtained. RADIATION DOSE: NA LIMITATIONS: None. FINDINGS: LUNGS AND PLEURA: Unchanged opacities in the left retrocardiac space. MEDIASTINUM AND HILAR STRUCTURES: Stable mediastinal and hilar contours. HEART AND VASCULAR STRUCTURES: Stable cardiac silhouette. BONES: No acute findings. HARDWARE: The tip of the endotracheal tube projects 6.3 cm above the ammon. The tip and side hole o f the enteric tube project within the gastric lumen. OTHER: No other finding. IMPRESSION: 1. The tip of the endotracheal tube projects 6.3 cm above the ammon. The tip and side hole of the enteric tube project within the gastric lumen. 2. Unchanged left retrocardiac opacities. TECHNICAL DOCUMENTATION: JOB ID: [id number] 2010 [employer]- All Rights Reserved Reading location - IP/workstation name: [email or web address]
[2019-12-14] MEDS ORDERED: SUCCINYLCHOLINE CHLORIDE INJ 200 MG/10 ML VIAL ONE (09:59)
[2019-12-14] MEDS: THIAMINE HCL 100 MG, FOLIC ACID 1 MG in NORMAL SALINE 250 ML IV SCH (11:07)
[2019-12-14 11:38] LABS: PATH REVIEW PATHOLOGIST REVIEWED
[2019-12-14] MEDS ORDERED: DEXMEDETOMIDINE IN 0.9 % NACL 400 MCG/100 ML RTUPB IV PRN (12:43)
[2019-12-14] MEDS ORDERED: PHYTONADIONE 5 MG TABLET NG ONE (16:30)
[2019-12-14 17:36] LABS: HEMATOCRIT 17.2 % (37.9-51.0); MEAN CORPUSCULAR HEMOGLOBIN 30.3 pg (27.0-33.4); MEAN CORPUSCULAR HGB CONC 33.9 g/dL (32.0-36.0); MEAN CORPUSCULAR VOLUME 90 fl (80-97); PLATELET COUNT 160 10^3/uL (150-450); RED BLOOD COUNT 1.92 10^6/uL (4.35-5.55); RED CELL DISTRIBUTION WIDTH 16.2 % (11.5-14.0)
[2019-12-14 17:39] LABS: HEMOGLOBIN 5.8 g/dL (13.5-17.0)
[2019-12-14] MEDS: DEXMEDETOMIDINE IN NS 400 MCG/100 ML RTUPB IV PRN (19:11)
[2019-12-15] MEDS: DEXMEDETOMIDINE IN NS 400 MCG/100 ML RTUPB IV PRN ×3 (00:49→11:43)
[2019-12-15 03:19] LABS: HEMATOCRIT 26.8 % (37.9-51.0); MEAN CORPUSCULAR HEMOGLOBIN 30.5 pg (27.0-33.4); MEAN CORPUSCULAR HGB CONC 34.8 g/dL (32.0-36.0); MEAN CORPUSCULAR VOLUME 88 fl (80-97); PLATELET COUNT 152 10^3/uL (150-450); RED BLOOD COUNT 3.06 10^6/uL (4.35-5.55); WHITE BLOOD COUNT 11.4 10^3/uL (4.0-10.5)
[2019-12-15 03:21] LABS: HEMOGLOBIN 9.3 g/dL (13.5-17.0)
[2019-12-15 04:30] LABS: ANION GAP 5 (5-19); BLOOD UREA NITROGEN 15 mg/dL (7-20); CALCIUM 7.4 mg/dL (8.4-10.2); GLUCOSE 88 mg/dL (75-110)
[2019-12-15 04:36] LABS: CHLORIDE 107 mmol/L (98-107)
[2019-12-15 04:44] LABS: POTASSIUM 3.3 mmol/L (3.6-5.0)
[2019-12-15 04:45] LABS: CARBON DIOXIDE 24 mmol/L (22-30); PHOSPHORUS 2.4 mg/dL (2.5-4.5)
[2019-12-15 05:22] LABS: ARTERIAL BLOOD BASE EXCESS -0.8 mmol/L; ARTERIAL BLOOD H2CO3 1.03 mmol/L (1.05-1.35); ARTERIAL BLOOD PCO2 34.3 mmHg (35-45); ARTERIAL BLOOD PH 7.44 (7.35-7.45)
[2019-12-15 05:23] LABS: ARTERIAL BLOOD FIO2 30%
--- NOTE | 2019-12-15 06:21 | RADIOLOGY REPORT (SQ) ---
EXAM DESCRIPTION: XR CHEST 1 VIEW COMPLETED DATE/TME: 12/15/2019 05:00 CLINICAL HISTORY: 64 years Male, ETT tube COMPARISON: One day prior. NUMBER OF VIEWS/TECHNIQUE: 2 FINDINGS: Moderate central edema pattern, right more than left. Interval worsening. Adequate appearing endotracheal tube. Adequate appearing enteric tube. Normal cardiac silhouette size. No pneumothorax. Stable bony thorax. IMPRESSION: Moderate central edema pattern, right more than left. Interval worsening.
[2019-12-15 06:59] LABS: HEMATOCRIT 7.9 % (37.9-51.0)
[2019-12-15 08:06] LABS: HEMATOCRIT 28.6 % (37.9-51.0); HEMOGLOBIN 9.9 g/dL (13.5-17.0); MEAN CORPUSCULAR HEMOGLOBIN 30.4 pg (27.0-33.4); MEAN CORPUSCULAR HGB CONC 34.6 g/dL (32.0-36.0); MEAN CORPUSCULAR VOLUME 88 fl (80-97); PLATELET COUNT 168 10^3/uL (150-450); RED BLOOD COUNT 3.25 10^6/uL (4.35-5.55); RED CELL DISTRIBUTION WIDTH 16.5 % (11.5-14.0); WHITE BLOOD COUNT 12.3 10^3/uL (4.0-10.5)
[2019-12-15 09:06] LABS: CARBON DIOXIDE 7 mmol/L (22-30)
[2019-12-15] MEDS: THIAMINE HCL 100 MG, FOLIC ACID 1 MG in NORMAL SALINE 250 ML IV SCH (09:38)
[2019-12-15] MEDS: NORMAL SALINE 100 ML with PANTOPRAZOLE SODIUM 80 MG IV PRN ×4 (11:41→22:55)
[2019-12-15] MEDS: RINGERS SOLUTION,LACTATED 1,000 ML IV PRN (11:44)
[2019-12-15] MEDS ORDERED: MORPHINE SULFATE 10 MG/ML INJ IV PRN (14:09)
[2019-12-15] MEDS: POTASSIUM CHLORIDE 20 MEQ PACKET NG SCH ×2 (14:18→17:37)
[2019-12-15] MEDS ORDERED: MORPHINE SULFATE 10 MG/ML INJ IV ONE (15:00)
[2019-12-15] MEDS: IPRATROPIUM/ALBUTEROL 0.5-2.5 MG/3 ML AMPUL NEB PRN (15:45)
[2019-12-15 16:13] LABS: HEMOGLOBIN 9.9 g/dL (13.5-17.0); MEAN CORPUSCULAR VOLUME 88 fl (80-97); PLATELET COUNT 189 10^3/uL (150-450); RED BLOOD COUNT 3.29 10^6/uL (4.35-5.55); RED CELL DISTRIBUTION WIDTH 16.6 % (11.5-14.0); WHITE BLOOD COUNT 14.9 10^3/uL (4.0-10.5)
--- NOTE | 2019-12-15 17:23 | PDOC CONSULTATION ---
Consultation Consult Date: 12/15/19 Provider Consulted: SHELLY CABRAL Consult reason:: GI bleed History of Present Illness Admission Date/PCP: 12/14/19 06:27 History of Present Illness: AZAR LEON is a 64 year old male with a history of heavy alcohol intake who was discharged December 10, 2019 after thorough and unremarkable EGD done by . He did have biopsy of the antrum which came back as gastritis. Patient was then discharged and came back on 12/14/2019 for hematemesis and patrick quang. Was noted to be hypotensive with hemoglobin of 2.3 in the ED. He was intubated and transfused. He has been fairly stable in the ICU and being weaned from the respirator. His NG T however showed no blood or any coffee-ground material at this time. He is hemoglobin has been stable around 9. Past Medical History Cardiac Medical History: Reports: Hypertension Denies: Coronary Artery Disease, Myocardial Infarction Pulmonary Medical History: Reports: Chronic Obstructive Pulmonary Disease (COPD) Denies: Asthma, Bronchitis, Pneumonia Neurological Medical History: Reports: Seizures - no seizure Hx, though seized in ED 12/14/2019 Endocrine Medical History: Denies: Diabetes Mellitus Type 2 GI Medical History: Reports: Hiatal Hernia - on EGD 12/10/2019 Denies: Gastroesophageal Reflux Disease, Hepatitis Musculoskeltal Medical History: Denies: Arthritis, Gout - denies previous history Psychiatric Medical History: Reports: General Anxiety Disorder Denies: Depression Hematology: Denies: Anemia, Sickle Cell Disease Past Surgical History Past Surgical History: Reports: Orthopedic Surgery - left foot Denies: Pacemaker Social History Lives with: Spouse/Significant other Smoking Status: Current Every Day Smoker - 1 PPD Frequency of Alcohol Use: Heavy - Documentation during recent hospitalization reports 3 quarts of wine daily that he procures from his local gas station. Hx Recreational Drug Use: Yes Drugs: Marijuana Hx Prescription Drug Abuse: No - Advance Directive Resuscitation Status: Full Code Family History Family History: Reviewed & Not Pertinent Parental Family History Reviewed: No Children Family History Reviewed: No Sibling(s) Family History Reviewed.: No Medication/Allergy Home Medications: No Home Medications 12/14/19 Allergies/Adverse Reactions: No Known Allergies Allergy (Verified 07/18/15 11:50) Review of Systems ROS unobtainable: Due to endotracheal tube Physical Exam Vital Signs: Temp Pulse Resp BP Pulse Ox 100.6 F H 69 18 106/71 100 12/15/19 16:00 12/15/19 15:45 12/15/19 15:45 12/15/19 01:50 12/15/19 15:45 Intake & Output 12/14/19 12/15/19 12/16/19 06:59 06:59 06:59 Intake Total 1999 4829.2 1566.2 Output Total 1130 Balance 1999 3699.2 1566.2 Weight 73.3 kg 79.7 kg Exam: Intubated. Vital signs are stable. NGT in place with no coffee-ground or bloody drainage. Abdomen is soft Cardiovascular exam: PRESENT: RRR Pulses: PRESENT: normal radial pulses Vascular exam: PRESENT: normal capillary refill GI/Abdominal exam: PRESENT: soft - Nontender Rectal exam: PRESENT: deferred Skin exam: PRESENT: normal color, warm Results Laboratory Results: 12/15/19 16:04 12/15/19 03:52 12/14/19 12/14/19 12/14/19 04:11 04:11 04:11 WBC RBC Hgb Hct 7.9 L* MCV MCH MCHC RDW Plt Count Carbonic Acid HCO3/H2CO3 Ratio ABG pH ABG pCO2 ABG pO2 ABG HCO3 ABG O2 Saturation ABG Base Excess FiO2 Sodium Potassium Chloride Carbon Dioxide 7 L* Anion Gap BUN Creatinine Est GFR ( Amer) Glucose Calcium 7.0 L* Phosphorus Magnesium Blood Type A NEGATIVE Antibody Screen NEGATIVE 12/14/19 12/14/19 12/15/19 17:13 17:13 02:56 WBC 13.0 H 11.4 H RBC 1.92 L 3.06 L Hgb 5.8 L 9.3 L D Hct 17.2 L 26.8 L MCV 90 88 MCH 30.3 30.5 MCHC 33.9 34.8 RDW 16.2 H 16.0 H Plt Count 160 152 Carbonic Acid HCO3/H2CO3 Ratio ABG pH ABG pCO2 ABG pO2 ABG HCO3 ABG O2 Saturation ABG Base Excess FiO2 Sodium Potassium Chloride Carbon Dioxide Anion Gap BUN Creatinine Est GFR ( Amer) Glucose Calcium Phosphorus Magnesium 2.0 Blood Type Antibody Screen 12/15/19 12/15/19 12/15/19 03:52 05:18 07:50 WBC 12.3 H RBC 3.25 L Hgb 9.9 L Hct 28.6 L MCV 88 MCH 30.4 MCHC 34.6 RDW 16.5 H Plt Count 168 Carbonic Acid 1.03 L HCO3/H2CO3 Ratio 22:1 ABG pH 7.44 ABG pCO2 34.3 L ABG pO2 103.0 H ABG HCO3 23.0 ABG O2 Saturation 98.0 ABG Base Excess -0.8 FiO2 30% Sodium 136.0 L Potassium 3.3 L D Chloride 107 Carbon Dioxide 24 D Anion Gap 5 BUN 15 Creatinine 0.88 Est GFR ( Amer) > 60 Glucose 88 Calcium 7.4 L Phosphorus 2.4 L D Magnesium 1.9 Blood Type Antibody Screen 12/15/19 16:04 WBC 14.9 H RBC 3.29 L Hgb 9.9 L Hct 29.0 L MCV 88 MCH 30.0 MCHC 34.0 RDW 16.6 H Plt Count 189 Carbonic Acid HCO3/H2CO3 Ratio ABG pH ABG pCO2 ABG pO2 ABG HCO3 ABG O2 Saturation ABG Base Excess FiO2 Sodium Potassium Chloride Carbon Dioxide Anion Gap BUN Creatinine Est GFR ( Amer) Glucose Calcium Phosphorus Magnesium Blood Type Antibody Screen 12/15/19 03:52 NT-Pro-B Natriuret Pep 2080 H Impressions: Head CT 12/14/19 04:58 IMPRESSION: No acute intracranial abnormality TECHNICAL DOCUMENTATION: Quality ID # [id number]: Final reports with documentation of one or more dose reduction techniques (e.g., Automated exposure control, adjustment of the mA and/or kV according to patient size, use of iterative reconstruction technique) copyright 2011 [employer]- All Rights Reserved Chest X-Ray 12/15/19 05:00 IMPRESSION: Moderate central edema pattern, right more than left. Interval worsening. Assessment & Plan - Diagnosis (1) Anemia due to acute blood loss Is this a current diagnosis for this admission?: Yes (2) Chronic gastritis with bleeding Is this a current diagnosis for this admission?: Yes (3) Hypotension Qualifiers: Hypotension type: hypotension due to hypovolemia Qualified Code(s): I95.89 - Other hypotension; E86.1 - Hypovolemia Is this a current diagnosis for this admission?: Yes (4) Prolonged INR Is this a current diagnosis for this admission?: Yes (5) Upper GI bleed Is this a current diagnosis for this admission?: Yes (6) Hx of essential hypertension Is this a current diagnosis for this admission?: Yes - Time Time Spent: 30 to 50 Minutes - Inpatient Certification Medical Necessity: Need Close Monitoring Due to Risk of Patient Decompensation, Need For IV Fluids, Need For Continuous Telemetry Monitoring, Need for Neurological Checks - Plan Summary Plan Summary: 64-year-old male with history of heavy alcohol intake and GI bleed. Had upper endoscopy done by Dr. Muir December 10, 2019 which was unremarkable except for some thickened antrum that was biopsied showed gastritis. Patient came back to the ED on 12/14/2023 hematemesis and melena with hypotension. He had seizures in the ED and subsequently intubated and transfused for hemoglobin of 2.3. Right now patient is ICU on the vent and gradually being weaned by Dr. Cochran the dye tank tender. His hemoglobin has been stable and NG drainage has been clear. His situation was discussed with Dr. Collins and we both feel that patient likely gill had an upper GI bleed from gastritis or from the biopsy site. Fact that he remained stable now without any evidence of bleeding that it is not absolutely necessary at this time to repeat the upper endoscopy. We will therefore hold his EGD. We will then sign off. Call for any questions.
[2019-12-16 00:54] LABS: HEMATOCRIT 26.7 % (37.9-51.0); HEMOGLOBIN 9.3 g/dL (13.5-17.0); MEAN CORPUSCULAR HEMOGLOBIN 30.6 pg (27.0-33.4); MEAN CORPUSCULAR HGB CONC 34.6 g/dL (32.0-36.0); MEAN CORPUSCULAR VOLUME 88 fl (80-97); PLATELET COUNT 187 10^3/uL (150-450); RED BLOOD COUNT 3.03 10^6/uL (4.35-5.55); RED CELL DISTRIBUTION WIDTH 16.3 % (11.5-14.0); WHITE BLOOD COUNT 14.3 10^3/uL (4.0-10.5)
[2019-12-16] MEDS ORDERED: CEFTRIAXONE 1 GM/D5W RTU 1 GM/50 ML RTUPB IV SCH (04:00)
[2019-12-16 04:42] LABS: ANION GAP 10 (5-19); BLOOD UREA NITROGEN 11 mg/dL (7-20); CALCIUM 7.4 mg/dL (8.4-10.2); CARBON DIOXIDE 19 mmol/L (22-30); CHLORIDE 108 mmol/L (98-107); GLUCOSE 73 mg/dL (75-110); PHOSPHORUS 2.8 mg/dL (2.5-4.5); POTASSIUM 3.7 mmol/L (3.6-5.0)
[2019-12-16 04:43] LABS: INTERNATIONAL RATION (INR) 1.25; PROTHROMBIN TIME 15.8 SEC (11.4-15.4)
[2019-12-16 04:44] LABS: PARTIAL THROMBOPLASTIN TIME 32.6 SEC (23.5-35.8)
[2019-12-16] MEDS ORDERED: DEXTROSE 50%-WATER 25 GM/50 ML DISP.SYRIN IV ONE (05:18)
[2019-12-16] MEDS ORDERED: DEXTROSE 40% GEL 15 GM TUBE PO PRN (05:30)
[2019-12-16] MEDS ORDERED: DEXTROSE 50%-WATER SYRINGE 12.5 GM/25 ML DOSE IV PRN (05:30)
[2019-12-16] MEDS ORDERED: GLUCAGON,HUMAN RECOMB 1 MG INJ IM PRN (05:30)
[2019-12-16] MEDS ORDERED: DEXTROSE 50%-WATER SYRINGE 25 GM/50 ML DOSE IV PRN (05:30)
[2019-12-16] MEDS ORDERED: DEXTROSE 40% GEL 15 GM TUBE X 2 PO PRN (05:30)
--- NOTE | 2019-12-16 08:28 | RADIOLOGY REPORT (SQ) ---
EXAM DESCRIPTION: CHEST SINGLE VIEW IMAGES COMPLETED DATE/TIME: 12/16/2019 8:12 am REASON FOR STUDY: pneumonia COMPARISON: 12/15/2019 EXAM PARAMETERS: NUMBER OF VIEWS: One view. TECHNIQUE: Single frontal radiographic view of the chest acquired. RADIATION DOSE: NA LIMITATIONS: None. FINDINGS: LUNGS AND PLEURA: Persistent perihilar and right upper lobe patchy airspace disease, mildl y improved from prior. No new airspace disease. No pleural effusion or pneumothorax. MEDIASTINUM AND HILAR STRUCTURES: Stable. HEART AND VASCULAR STRUCTURES: Enlarged, stable. Unfolded thoracic aorta. BONES: No acute findings. HARDWARE: None in the chest. OTHER: No other significant finding. IMPRESSION: Improved but persistent perihilar patchy opacities, right greater than left, possibly ed jimena or infection. TECHNICAL DOCUMENTATION: JOB ID: [id number] 2010 [employer]- All Rights Reserved Reading location - IP/workstation name: [email or web address]
[2019-12-16 08:57] LABS: HEMATOCRIT 26.8 % (37.9-51.0); HEMOGLOBIN 9.3 g/dL (13.5-17.0); MEAN CORPUSCULAR HEMOGLOBIN 30.4 pg (27.0-33.4); MEAN CORPUSCULAR HGB CONC 34.6 g/dL (32.0-36.0); MEAN CORPUSCULAR VOLUME 88 fl (80-97); PLATELET COUNT 212 10^3/uL (150-450); RED BLOOD COUNT 3.05 10^6/uL (4.35-5.55); RED CELL DISTRIBUTION WIDTH 16.2 % (11.5-14.0); WHITE BLOOD COUNT 14.4 10^3/uL (4.0-10.5)
[2019-12-16] MEDS: NORMAL SALINE 100 ML with PANTOPRAZOLE SODIUM 80 MG IV PRN ×6 (09:28→23:08)
[2019-12-16] MEDS: THIAMINE HCL 100 MG, FOLIC ACID 1 MG in NORMAL SALINE 250 ML IV SCH (09:28)
--- NOTE | 2019-12-16 12:13 | PDOC CRITICAL CARE PROG REPORT ---
General Date:: 12/15/19 ICU Day:: 2 Ventilator Day:: 2 Hospital Day:: 2 Resuscitation Status: Full Code Events in the past 12 to 24 Hours:: 12/13: Admitted to ICU with GI bleed, hemoglobin 2.3. Underwent EGD on 12/08 which revealed chronic atrophic gastritis without overt active bleeding. 12/14: Remains intubated. Easily arousable. Follows commands. Hemoglobin 9.3, stable after a total of 6 units PRBC, 2 units FFP transfused thus far. On Protonix infusion. On Precedex for sedation. Got vitamin K 10 mg per NG tube yesterday for coagulopathy. Reason for ICU Addmission:: Upper GI bleed, seizure, hypotension, encounter for weaning from mechanical ventilator - Medications: Medications reviewed and adjusted accordingly: Yes Sedation:: Precedex Physical Exam Vital Signs: Temp Pulse Resp BP Pulse Ox 98.6 F 109 H 20 106/71 100 12/15/19 05:35 12/15/19 10:00 12/15/19 08:40 12/15/19 01:50 12/15/19 11:30 Intake & Output 12/14/19 12/15/19 12/16/19 06:59 06:59 06:59 Intake Total 1999 4829.2 1351.2 Output Total 1130 Balance 1999 3699.2 1351.2 Weight 73.3 kg 79.7 kg Weight/Height Weight 79.7 kg Height 1.8 m General appearance: PRESENT: no acute distress, well-developed, well-nourished Head exam: PRESENT: atraumatic, normocephalic Eye exam: PRESENT: conjunctiva pink, EOMI, PERRLA. ABSENT: scleral icterus Mouth exam: PRESENT: moist, tongue midline Neck exam: ABSENT: carotid bruit, JVD, lymphadenopathy, thyromegaly Respiratory exam: PRESENT: rales, rhonchi. ABSENT: prolonged expiratory phas Cardiovascular exam: PRESENT: RRR. ABSENT: diastolic murmur, rubs, systolic murmur Pulses: PRESENT: normal dorsalis pedis pul GI/Abdominal exam: PRESENT: normal bowel sounds, soft. ABSENT: distended, guarding, mass, organolmegaly, rebound, tenderness Musculoskeletal exam: PRESENT: normal inspection. ABSENT: deformity Neurological exam: PRESENT: reflexes normal, CN II-XII grossly intact. ABSENT: motor sensory deficit Psychiatric exam: ABSENT: agitated, anxious Skin exam: PRESENT: dry, intact, warm. ABSENT: cyanosis, rash Tubes/Lines: PRESENT: Endotracheal Tube, Nasogastic Tube Laboratory/Radiographs Laboratory Results: 12/15/19 07:50 12/15/19 03:52 12/14/19 12/14/19 12/14/19 04:11 04:11 04:11 WBC RBC Hgb Hct 7.9 L* MCV MCH MCHC RDW Plt Count Carbonic Acid HCO3/H2CO3 Ratio ABG pH ABG pCO2 ABG pO2 ABG HCO3 ABG O2 Saturation ABG Base Excess FiO2 Sodium Potassium Chloride Carbon Dioxide 7 L* Anion Gap BUN Creatinine Est GFR ( Amer) Glucose Calcium 7.0 L* Phosphorus Magnesium Blood Type A NEGATIVE Antibody Screen NEGATIVE 12/14/19 12/14/19 12/15/19 17:13 17:13 02:56 WBC 13.0 H 11.4 H RBC 1.92 L 3.06 L Hgb 5.8 L 9.3 L D Hct 17.2 L 26.8 L MCV 90 88 MCH 30.3 30.5 MCHC 33.9 34.8 RDW 16.2 H 16.0 H Plt Count 160 152 Carbonic Acid HCO3/H2CO3 Ratio ABG pH ABG pCO2 ABG pO2 ABG HCO3 ABG O2 Saturation ABG Base Excess FiO2 Sodium Potassium Chloride Carbon Dioxide Anion Gap BUN Creatinine Est GFR ( Amer) Glucose Calcium Phosphorus Magnesium 2.0 Blood Type Antibody Screen 12/15/19 12/15/19 12/15/19 03:52 05:18 07:50 WBC 12.3 H RBC 3.25 L Hgb 9.9 L Hct 28.6 L MCV 88 MCH 30.4 MCHC 34.6 RDW 16.5 H Plt Count 168 Carbonic Acid 1.03 L HCO3/H2CO3 Ratio 22:1 ABG pH 7.44 ABG pCO2 34.3 L ABG pO2 103.0 H ABG HCO3 23.0 ABG O2 Saturation 98.0 ABG Base Excess -0.8 FiO2 30% Sodium 136.0 L Potassium 3.3 L D Chloride 107 Carbon Dioxide 24 D Anion Gap 5 BUN 15 Creatinine 0.88 Est GFR ( Amer) > 60 Glucose 88 Calcium 7.4 L Phosphorus 2.4 L D Magnesium 1.9 Blood Type Antibody Screen 12/15/19 03:52 NT-Pro-B Natriuret Pep 0 H Impressions: Head CT 12/14/19 04:58 IMPRESSION: No acute intracranial abnormality TECHNICAL DOCUMENTATION: Quality ID # 436: Final reports with documentation of one or more dose reduction techniques (e.g., Automated exposure control, adjustment of the mA and/or kV according to patient size, use of iterative reconstruction technique) copyright 2011 [employer]- All Rights Reserved Chest X-Ray 12/15/19 05:00 IMPRESSION: Moderate central edema pattern, right more than left. Interval worsening. All labs, radiographs, diagnostic studies and EKGs were personally reviewed: Yes In addition, reports of radiographic and diagnostic studies were read: Yes Assessment and Plan - Diagnosis (1) Anemia due to acute blood loss Is this a current diagnosis for this admission?: Yes Plan: Anticipate liberation from mechanical ventilatory support in 24 to 48 hours. Continue sedation with Precedex for now. Spontaneous breathing trial in a.m. (2) COPD (chronic obstructive pulmonary disease) Qualifiers: COPD type: chronic bronchitis Chronic bronchitis type: simple Qualified Code(s): J41.0 - Simple chronic bronchitis Is this a current diagnosis for this admission?: Yes Plan: Aerosols. (3) Chronic gastritis with bleeding Is this a current diagnosis for this admission?: Yes Plan: Continue Protonix infusion x72 hours followed by change to twice daily dosing. (4) Prolonged INR Is this a current diagnosis for this admission?: Yes Plan: Got vitamin K 10 mg per NG tube yesterday along with 2 units FFP. PT/PTT in a.m. (5) Upper GI bleed Is this a current diagnosis for this admission?: Yes Plan: Hemodynamically stable. Surgery consultation PENDING. Critical Time Critical Time (minutes): 60 Level of Care: ICU -: 1. The care of a critical patient is a dynamic process. This note is a clearance representative synopsis but static in nature. The timeframe for treatments given in order is not necessarily the actual time these treatments may have been done. 2. This patient requires critical care secondary to ongoing requirements for therapy not offered or safe outside the critical care environment. Transfer to a lower level of care will result in altered life or limb morbidity and mortality. 3. Multidisciplinary rounds completed. 4. ABCDE bundle addressed.
[2019-12-16] MEDS ORDERED: TOBRAMYCIN SULFATE INJ 80 MG/2 ML VIAL NEB SCH (12:30)
[2019-12-16] MEDS: LEVOFLOXACIN 750 MG/D5W RTU 750 MG/150 ML RTUPB IV SCH (13:20)
[2019-12-16] MEDS: TOBRAMYCIN SULFATE NEB 40 MG/ML 30 ML NEB SCH ×2 (13:46→20:55)
--- NOTE | 2019-12-16 13:49 | PDOC CRITICAL CARE PROG REPORT ---
General Date:: 12/16/19 ICU Day:: 3 Hospital Day:: 3 Resuscitation Status: Full Code Events in the past 12 to 24 Hours:: 12/13: Admitted to ICU with GI bleed, hemoglobin 2.3. Underwent EGD on 12/08 which revealed chronic atrophic gastritis without overt active bleeding. 12/14: Remains intubated. Easily arousable. Follows commands. Hemoglobin 9.3, stable after a total of 6 units PRBC, 2 units FFP transfused thus far. On Protonix infusion. On Precedex for sedation. Got vitamin K 10 mg per NG tube yesterday for coagulopathy. 12/15: Successfully extubated yesterday. On room air. Passed bedside swallow evaluation. Ate lunch. Hemoglobin 9.3, stable. Started on Rocephin for gram- negative rods in tracheal aspirate, which have isolated Pseudomonas aeruginosa and Haemophilus influenzae. Review of systems relevant to events:: Gastrointestinal: Upper GI bleed Neurologic: Seizures Cardiovascular: Hypotension Reason for ICU Addmission:: Upper GI bleed, seizure, hypotension, encounter for weaning from mechanical ventilator - Medications: Medications reviewed and adjusted accordingly: Yes Physical Exam Vital Signs: Temp Pulse Resp BP Pulse Ox 100.4 F 86 28 H 119/82 96 12/16/19 10:00 12/16/19 10:00 12/16/19 10:00 12/16/19 10:00 12/16/19 10:00 Intake & Output 12/15/19 12/16/19 12/17/19 06:59 06:59 06:59 Intake Total 4829.2 1816.2 469.2 Output Total 1130 1200 295 Balance 3699.2 616.2 174.2 Weight 79.7 kg 80.7 kg Weight/Height Weight 80.7 kg Height 1.8 m General appearance: PRESENT: no acute distress, well-developed, well-nourished Head exam: PRESENT: atraumatic, normocephalic Eye exam: PRESENT: conjunctiva pink, EOMI, PERRLA. ABSENT: scleral icterus Mouth exam: PRESENT: moist, tongue midline Neck exam: ABSENT: carotid bruit, JVD, lymphadenopathy, thyromegaly Respiratory exam: PRESENT: rales, rhonchi Cardiovascular exam: PRESENT: RRR. ABSENT: diastolic murmur, rubs, systolic murmur Pulses: PRESENT: normal dorsalis pedis pul GI/Abdominal exam: PRESENT: normal bowel sounds, soft. ABSENT: distended, guarding, mass, organolmegaly, rebound, tenderness Extremities exam: PRESENT: full ROM. ABSENT: calf tenderness, clubbing, pedal edema Musculoskeletal exam: PRESENT: normal inspection. ABSENT: deformity Neurological exam: PRESENT: alert, awake, oriented to person, oriented to place, oriented to time, oriented to situation, CN II-XII grossly intact. ABSENT: motor sensory deficit Skin exam: PRESENT: dry, intact, warm. ABSENT: cyanosis, rash Laboratory/Radiographs Laboratory Results: 12/16/19 08:44 12/16/19 04:10 12/14/19 12/15/19 12/16/19 04:11 16:04 00:47 WBC 14.9 H 14.3 H RBC 3.29 L 3.03 L Hgb 9.9 L 9.3 L Hct 29.0 L 26.7 L MCV 88 88 MCH 30.0 30.6 MCHC 34.0 34.6 RDW 16.6 H 16.3 H Plt Count 189 187 Sodium Potassium Chloride Carbon Dioxide Anion Gap BUN Creatinine Est GFR ( Amer) Glucose Lactic Acid Calcium Phosphorus Magnesium Blood Type A NEGATIVE Antibody Screen NEGATIVE 12/16/19 12/16/19 12/16/19 04:10 04:10 08:44 WBC 14.4 H RBC 3.05 L Hgb 9.3 L Hct 26.8 L MCV 88 MCH 30.4 MCHC 34.6 RDW 16.2 H Plt Count 212 Sodium 136.6 L Potassium 3.7 Chloride 108 H Carbon Dioxide 19 L Anion Gap 10 BUN 11 Creatinine 0.80 Est GFR ( Amer) > 60 Glucose 73 L Lactic Acid 0.7 Calcium 7.4 L Phosphorus 2.8 Magnesium 1.7 Blood Type Antibody Screen 12/14/19 13:09 Tracheal Aspirate Gram Stain - Final 12/14/19 13:09 Tracheal Aspirate Sputum Culture - Final Pseudomonas Aeruginosa Haemophilus Influenzae Reduced Normal Andree 12/15/19 03:52 NT-Pro-B Natriuret Pep 2080 H Impressions: Head CT 12/14/19 04:58 IMPRESSION: No acute intracranial abnormality TECHNICAL DOCUMENTATION: Quality ID # [id number]: Final reports with documentation of one or more dose reduction techniques (e.g., Automated exposure control, adjustment of the mA and/or kV according to patient size, use of iterative reconstruction technique) copyright 2011 [employer]- All Rights Reserved Chest X-Ray 12/16/19 06:00 IMPRESSION: Improved but persistent perihilar patchy opacities, right greater than left, possibly edema or infection. All labs, radiographs, diagnostic studies and EKGs were personally reviewed: Yes In addition, reports of radiographic and diagnostic studies were read: Yes Assessment and Plan - Diagnosis (1) Anemia due to acute blood loss Is this a current diagnosis for this admission?: Yes (2) COPD (chronic obstructive pulmonary disease) Qualifiers: COPD type: chronic bronchitis Chronic bronchitis type: simple Qualified Code(s): J41.0 - Simple chronic bronchitis Is this a current diagnosis for this admission?: Yes (3) Chronic gastritis with bleeding Is this a current diagnosis for this admission?: Yes (4) Prolonged INR Is this a current diagnosis for this admission?: Yes (5) Upper GI bleed Is this a current diagnosis for this admission?: Yes (6) Pseudomonas pneumonia Is this a current diagnosis for this admission?: Yes Plan: Start Levaquin/SUSAN. (7) Haemophilus influenzae pneumonia Is this a current diagnosis for this admission?: Yes Plan: Start Levaquin/SUSAN. Critical Time Critical Time (minutes): 60 Level of Care: ICU -: 1. The care of a critical patient is a dynamic process. This note is a merchandiser retail representative synopsis but static in nature. The timeframe for treatments given in order is not necessarily the actual time these treatments may have been done. 2. This patient requires critical care secondary to ongoing requirements for therapy not offered or safe outside the critical care environment. Transfer to a lower level of care will result in altered life or limb morbidity and mortality. 3. Multidisciplinary rounds completed. 4. ABCDE bundle addressed.
[2019-12-16 16:41] LABS: INTERNATIONAL RATION (INR) 1.36; PROTHROMBIN TIME 16.9 SEC (11.4-15.4)
[2019-12-16 16:42] LABS: PARTIAL THROMBOPLASTIN TIME 33.9 SEC (23.5-35.8)
--- NOTE | 2019-12-16 16:45 | PDOC CRITICAL CARE PROG REPORT ---
General Date:: 12/16/19 Resuscitation Status: Full Code Events in the past 12 to 24 Hours:: 12/13: Admitted to ICU with GI bleed, hemoglobin 2.3. Underwent EGD on 12/08 which revealed chronic atrophic gastritis without overt active bleeding. 12/14: Remains intubated. Easily arousable. Follows commands. Hemoglobin 9.3, stable after a total of 6 units PRBC, 2 units FFP transfused thus far. On P rotonix infusion. On Precedex for sedation. Got vitamin K 10 mg per NG tube yesterday for coagulopathy. 12/15: Successfully extubated yesterday. On room air. Passed bedside swallow evaluation. Ate lunch. Hemoglobin 9.3, stable. Started on Rocephin for gram- negative rods in tracheal aspirate, which have isolated Pseudomonas aeruginosa and Haemophilus influenzae. Reason for ICU Addmission:: Upper GI bleed, seizure, hypotension, encounter for weaning from mechanical ventilator Physical Exam Vital Signs: Temp Pulse Resp BP Pulse Ox 100.4 F 109 H 26 H 154/79 H 97 12/16/19 14:00 12/16/19 14:00 12/16/19 14:00 12/16/19 14:00 12/16/19 14:00 Intake & Output 12/15/19 12/16/19 12/17/19 06:59 06:59 06:59 Intake Total 4829.2 1816.2 1216.2 Output Total 1130 1200 605 Balance 3699.2 616.2 611.2 Weight 79.7 kg 80.7 kg Weight/Height Weight 80.7 kg Height 1.8 m Laboratory/Radiographs Laboratory Results: 12/16/19 08:44 12/16/19 04:10 12/16/19 12/16/19 12/16/19 00:47 04:10 04:10 WBC 14.3 H RBC 3.03 L Hgb 9.3 L Hct 26.7 L MCV 88 MCH 30.6 MCHC 34.6 RDW 16.3 H Plt Count 187 Sodium 136.6 L Potassium 3.7 Chloride 108 H Carbon Dioxide 19 L Anion Gap 10 BUN 11 Creatinine 0.80 Est GFR ( Amer) > 60 Glucose 73 L Lactic Acid 0.7 Calcium 7.4 L Phosphorus 2.8 Magnesium 1.7 12/16/19 08:44 WBC 14.4 H RBC 3.05 L Hgb 9.3 L Hct 26.8 L MCV 88 MCH 30.4 MCHC 34.6 RDW 16.2 H Plt Count 212 Sodium Potassium Chloride Carbon Dioxide Anion Gap BUN Creatinine Est GFR ( Amer) Glucose Lactic Acid Calcium Phosphorus Magnesium 12/14/19 13:09 Tracheal Aspirate Gram Stain - Final 12/14/19 13:09 Tracheal Aspirate Sputum Culture - Final Pseudomonas Aeruginosa Haemophilus Influenzae Reduced Normal Andree 12/15/19 03:52 NT-Pro-B Natriuret Pep 2080 H Impressions: Head CT 12/14/19 04:58 IMPRESSION: No acute intracranial abnormality TECHNICAL DOCUMENTATION: Quality ID # 436: Final reports with documentation of one or more dose reduction techniques (e.g., Automated exposure control, adjustment of the mA and/or kV according to patient size, use of iterative reconstruction technique) copyright 2011 [employer]- All Rights Reserved Chest X-Ray 12/16/19 06:00 IMPRESSION: Improved but persistent perihilar patchy opacities, right greater than left, possibly edema or infection. Assessment and Plan - Diagnosis (1) Anemia due to acute blood loss Is this a current diagnosis for this admission?: Yes (2) COPD (chronic obstructive pulmonary disease) Qualifiers: COPD type: chronic bronchitis Chronic bronchitis type: simple Qualified Code(s): J41.0 - Simple chronic bronchitis Is this a current diagnosis for this admission?: Yes (3) Chronic gastritis with bleeding Is this a current diagnosis for this admission?: Yes Plan: Continue Protonix infusion x72 hours followed by change to twice daily dosing. UPDATE: Was anticipating transfer to [facility]. However, at around 1600, the patient had multiple episodes of hematemesis. He became tachycardic, diaphoretic. Stat H&H and IV fluid bolus was ordered. Anticipate he will need additional blood transfusions. (4) Prolonged INR Is this a current diagnosis for this admission?: Yes (5) Upper GI bleed Is this a current diagnosis for this admission?: Yes (6) Pseudomonas pneumonia Is this a current diagnosis for this admission?: Yes (7) Haemophilus influenzae pneumonia Is this a current diagnosis for this admission?: Yes Critical Time Critical Time (minutes): 30 Level of Care: ICU -: 1. The care of a critical patient is a dynamic process. This note is a bilingual call center representative synopsis but static in nature. The timeframe for treatments given in order is not necessarily the actual time these treatments may have been done. 2. This patient requires critical care secondary to ongoing requirements for therapy not offered or safe outside the critical care environment. Transfer to a lower level of care will result in altered life or limb morbidity and morta lity. 3. Multidisciplinary rounds completed. 4. ABCDE bundle addressed.
[2019-12-16 17:33] LABS: HEMATOCRIT 23.9 % (37.9-51.0); HEMOGLOBIN 8.2 g/dL (13.5-17.0); MEAN CORPUSCULAR HEMOGLOBIN 30.3 pg (27.0-33.4); MEAN CORPUSCULAR HGB CONC 34.3 g/dL (32.0-36.0); MEAN CORPUSCULAR VOLUME 88 fl (80-97); PLATELET COUNT 218 10^3/uL (150-450); RED BLOOD COUNT 2.71 10^6/uL (4.35-5.55); RED CELL DISTRIBUTION WIDTH 16.2 % (11.5-14.0); WHITE BLOOD COUNT 16.2 10^3/uL (4.0-10.5)
[2019-12-16] MEDS: PROMETHAZINE HCL INJ 25 MG/1 ML VIAL IV PRN ×2 (18:01→22:32)
[2019-12-16] MEDS ORDERED: NORMAL SALINE 1000 ML 2,000 ML IV ONE (20:15)
[2019-12-16 20:33] LABS: HEMATOCRIT 19.4 % (37.9-51.0); MEAN CORPUSCULAR HEMOGLOBIN 30.3 pg (27.0-33.4); MEAN CORPUSCULAR VOLUME 89 fl (80-97); PLATELET COUNT 190 10^3/uL (150-450); RED BLOOD COUNT 2.17 10^6/uL (4.35-5.55); RED CELL DISTRIBUTION WIDTH 16.1 % (11.5-14.0); WHITE BLOOD COUNT 15.7 10^3/uL (4.0-10.5)
[2019-12-16 20:40] LABS: HEMOGLOBIN 6.6 g/dL (13.5-17.0)
[2019-12-16] MEDS ORDERED: NORMAL SALINE 250 ML IV PRN ×2 (20:49)
--- NOTE | 2019-12-16 23:50 | RADIOLOGY REPORT (SQ) ---
EXAM DESCRIPTION: X-RAY CHEST- TWO VIEWS CLINICAL HISTORY: Nasogastric tube placement. COMPARISON: December 16, 2019 at 7:47 AM. TECHNIQUE: 2 views of the chest. Study submitted at 11:16 PM. FINDINGS: There are overlying EKG leads. Enteric tube is visualized with distal tip overlying the expected location of the proximal stomach. Compared with prior exam performed the same day there is interval worsening of patchy opacity overlying the bilateral right greater than left mid to lower lung zones. The pulmonary vascularity and the cardiomediastinal silhouette are similar in appearance to prior exam. Osseous structures are unchanged. IMPRESSION: 1. Enteric tube with distal tip in the expected location of the proximal stomach. 2. Interval worsening of patchy opacities overlying the bilateral right greater than left mid to lower lung zones.
[2019-12-17] MEDS: NORMAL SALINE 100 ML with PANTOPRAZOLE SODIUM 80 MG IV PRN ×2 (05:05)
[2019-12-17 05:43] LABS: HEMATOCRIT 25.8 % (37.9-51.0); MEAN CORPUSCULAR HEMOGLOBIN 29.6 pg (27.0-33.4); MEAN CORPUSCULAR HGB CONC 33.9 g/dL (32.0-36.0); MEAN CORPUSCULAR VOLUME 87 fl (80-97); PLATELET COUNT 184 10^3/uL (150-450); RED BLOOD COUNT 2.95 10^6/uL (4.35-5.55); RED CELL DISTRIBUTION WIDTH 16.3 % (11.5-14.0); WHITE BLOOD COUNT 17.5 10^3/uL (4.0-10.5)
[2019-12-17 05:53] LABS: HEMOGLOBIN 8.7 g/dL (13.5-17.0); INTERNATIONAL RATION (INR) 1.33; PROTHROMBIN TIME 16.6 SEC (11.4-15.4)
[2019-12-17 05:54] LABS: PARTIAL THROMBOPLASTIN TIME 33.6 SEC (23.5-35.8)
[2019-12-17 06:09] LABS: ANION GAP 6 (5-19); BLOOD UREA NITROGEN 11 mg/dL (7-20); CALCIUM 7.1 mg/dL (8.4-10.2); CARBON DIOXIDE 23 mmol/L (22-30); CHLORIDE 110 mmol/L (98-107); GLUCOSE 98 mg/dL (75-110); POTASSIUM 3.2 mmol/L (3.6-5.0)
[2019-12-17] MEDS ORDERED: POTASSI CL 20 MEQ/50 ML RIDER 20 MEQ/50 ML RTUPB IV SCH (07:00)
[2019-12-17] MEDS: TOBRAMYCIN SULFATE NEB 40 MG/ML 30 ML NEB SCH ×2 (08:01→20:16)
[2019-12-17] MEDS: POTASSI CL 20 MEQ/50 ML RIDER 20 MEQ/50 ML RTUPB IV SCH ×4 (08:30→16:05)
[2019-12-17] MEDS: THIAMINE HCL 100 MG, FOLIC ACID 1 MG in NORMAL SALINE 250 ML IV SCH (09:45)
[2019-12-17] MEDS: LEVOFLOXACIN 750 MG/D5W RTU 750 MG/150 ML RTUPB IV SCH (12:44)
[2019-12-17] MEDS ORDERED: GLUCAGON,HUMAN RECOMB 1 MG INJ SUBCUT PRN (15:01)
[2019-12-17] MEDS ORDERED: DEXTROSE 50%-WATER 25 GM/50 ML DISP.SYRIN IV PRN ×2 (15:01)
[2019-12-17] MEDS ORDERED: DEXTROSE 40% GEL 15 GM TUBE PO PRN ×2 (15:01)
--- NOTE | 2019-12-17 16:11 | RADIOLOGY REPORT (SQ) ---
EXAM DESCRIPTION: NM GI BLEED SCAN IMAGES COMPLETED DATE/TIME: 12/17/2019 3:57 pm REASON FOR STUDY: hematemesis, negative EGD - OK to go off monitor COMPARISON: None. RADIONUCLIDE AND DOSE: 25.2 millicuries [employer]-labeled red blood cells. TECHNIQUE: Serial arterial-phase images acquired for 80 seconds immediately following injection of r adionuclide. Additional 60 images acquired at 60 seconds per image. LIMITATIONS: None. FINDINGS: Flow images without focal areas of abnormal radionuclide location. Serial images show no abnormal accumulation of radionuclide. IMPRESSION: NORMAL RADIONUCLIDE GASTROINTESTINAL BLEEDING STUDY. Reading location - IP/workstation name: [email or web address]
[2019-12-17 16:53] LABS: HEMATOCRIT 24.4 % (37.9-51.0); HEMOGLOBIN 8.2 g/dL (13.5-17.0); MEAN CORPUSCULAR HEMOGLOBIN 29.7 pg (27.0-33.4); MEAN CORPUSCULAR HGB CONC 33.6 g/dL (32.0-36.0); MEAN CORPUSCULAR VOLUME 89 fl (80-97); PLATELET COUNT 205 10^3/uL (150-450); RED BLOOD COUNT 2.76 10^6/uL (4.35-5.55); RED CELL DISTRIBUTION WIDTH 16.2 % (11.5-14.0)
[2019-12-17] MEDS: PANTOPRAZOLE SODIUM 40 MG VIAL IV SCH (17:54)
[2019-12-17 22:37] LABS: HEMATOCRIT 25.1 % (37.9-51.0); HEMOGLOBIN 8.4 g/dL (13.5-17.0); MEAN CORPUSCULAR HEMOGLOBIN 29.4 pg (27.0-33.4); MEAN CORPUSCULAR HGB CONC 33.3 g/dL (32.0-36.0); MEAN CORPUSCULAR VOLUME 88 fl (80-97); PLATELET COUNT 215 10^3/uL (150-450); RED BLOOD COUNT 2.84 10^6/uL (4.35-5.55); WHITE BLOOD COUNT 19.5 10^3/uL (4.0-10.5)
[2019-12-18 04:37] LABS: HEMATOCRIT 23.3 % (37.9-51.0); MEAN CORPUSCULAR HEMOGLOBIN 29.5 pg (27.0-33.4); MEAN CORPUSCULAR HGB CONC 33.6 g/dL (32.0-36.0); MEAN CORPUSCULAR VOLUME 88 fl (80-97); PLATELET COUNT 220 10^3/uL (150-450); RED BLOOD COUNT 2.65 10^6/uL (4.35-5.55); RED CELL DISTRIBUTION WIDTH 16.5 % (11.5-14.0); WHITE BLOOD COUNT 17.7 10^3/uL (4.0-10.5)
[2019-12-18 04:41] LABS: HEMOGLOBIN 7.8 g/dL (13.5-17.0)
[2019-12-18 04:47] LABS: BLOOD UREA NITROGEN 8 mg/dL (7-20); CALCIUM 7.3 mg/dL (8.4-10.2); CARBON DIOXIDE 23 mmol/L (22-30); GLUCOSE 88 mg/dL (75-110); PHOSPHORUS 2.3 mg/dL (2.5-4.5); POTASSIUM 3.7 mmol/L (3.6-5.0)
[2019-12-18 04:53] LABS: CHLORIDE 110 mmol/L (98-107)
[2019-12-18 05:05] LABS: ANION GAP 4 (5-19)
[2019-12-18] MEDS: PANTOPRAZOLE SODIUM 40 MG VIAL IV SCH ×2 (06:23→17:43)
[2019-12-18] MEDS: TOBRAMYCIN SULFATE NEB 40 MG/ML 30 ML NEB SCH ×2 (08:12→21:26)
[2019-12-18] MEDS: IPRATROPIUM/ALBUTEROL 0.5-2.5 MG/3 ML AMPUL NEB PRN ×2 (08:12→21:25)
--- NOTE | 2019-12-18 08:39 | RADIOLOGY REPORT (SQ) ---
EXAM DESCRIPTION: CHEST SINGLE VIEW IMAGES COMPLETED DATE/TIME: 12/18/2019 6:57 am REASON FOR STUDY: ETT tube COMPARISON: AP view of the chest from 12/16/2019. EXAM PARAMETERS: NUMBER OF VIEWS: One view. TECHNIQUE: An AP view of the chest was obtained. RADIATION DOSE: NA LIMITATIONS: None. FINDINGS: LUNGS AND PLEURA: The opacities in the mid to inferior aspect of the lungs have improved. The costophrenic sulci are blunted. There is no pneumothorax. MEDIASTINUM AND HILAR STRUCTURES: Stable mediastinal and hilar contours. HEART AND VASCULAR STRUCTURES: Stable cardiac silhouette. BONES: No acute findings. HARDWARE: The enteric tube has been removed. OTHER: No other finding. IMPRESSION: Interval removal of the enteric tube and improved opacities in the mid to inferior aspec t of the lungs. TECHNICAL DOCUMENTATION: JOB ID: [id number] 2010 [employer]- All Rights Reserved Reading location - IP/workstation name: [email or web address]
[2019-12-18] MEDS: THIAMINE HCL 100 MG, FOLIC ACID 1 MG in NORMAL SALINE 250 ML IV SCH (09:38)
[2019-12-18] MEDS ORDERED: FUROSEMIDE INJ/PF 40 MG/4 ML SDV IV ONE (10:22)
--- NOTE | 2019-12-18 11:37 | PDOC CRITICAL CARE PROG REPORT ---
General Date:: 12/17/19 ICU Day:: 4 Hospital Day:: 4 Resuscitation Status: Full Code Events in the past 12 to 24 Hours:: 12/13: Admitted to ICU with GI bleed, hemoglobin 2.3. Underwent EGD on 12/08 which revealed chronic atrophic gastritis without overt active bleeding. 12/14: Remains intubated. Easily arousable. Follows commands. Hemoglobin 9.3, stable after a total of 6 units PRBC, 2 units FFP transfused thus far. On Protonix infusion. On Precedex for sedation. Got vitamin K 10 mg per NG tube yesterday for coagulopathy. 12/15: Successfully extubated yesterday. On room air. Passed bedside swallow evaluation. Ate lunch. Hemoglobin 9.3, stable. Started on Rocephin for gram- negative rods in tracheal aspirate, which have isolated Pseudomonas aeruginosa and Haemophilus influenzae. 12/16: Remains extubated. On room air. Had multiple episodes of hematemesis yesterday afternoon. Hemoglobin 6.6. He was transfused 2 units PRBC with appropriate increase to 8.7. Antibiotics yesterday were changed from Rocephin to levofloxacin/SUSAN for Pseudomonas and Haemophilus influenzae. Review of systems relevant to events:: Gastrointestinal: Upper GI bleed Neurologic: Seizures Cardiovascular: Hypotension Reason for ICU Addmission:: Upper GI bleed, seizure, hypotension, encounter for weaning from mechanical ventilator - Medications: Medications reviewed and adjusted accordingly: Yes Physical Exam Vital Signs: Temp Pulse Resp BP Pulse Ox 99.9 F 109 H 25 H 140/78 H 100 12/17/19 08:00 12/17/19 08:01 12/17/19 10:04 12/17/19 10:04 12/17/19 10:04 Intake & Output 12/16/19 12/17/19 12/18/19 06:59 06:59 06:59 Intake Total 1816.2 3976.2 31 Output Total 1200 2005 150 Balance 616.2 1971.2 -119 Weight 80.7 kg 81 kg Weight/Height Weight 81 kg Height 1.8 m General appearance: PRESENT: no acute distress, well-developed, well-nourished Head exam: PRESENT: atraumatic, normocephalic Mouth exam: PRESENT: moist, tongue midline Neck exam: ABSENT: carotid bruit, JVD, lymphadenopathy, thyromegaly Respiratory exam: PRESENT: rales, rhonchi, symmetrical, unlabored Cardiovascular exam: PRESENT: RRR. ABSENT: diastolic murmur, rubs, systolic murmur GI/Abdominal exam: PRESENT: normal bowel sounds, soft. ABSENT: distended, guarding, mass, organolmegaly, rebound, tenderness Extremities exam: PRESENT: full ROM. ABSENT: calf tenderness, clubbing, pedal edema Laboratory/Radiographs Laboratory Results: 12/17/19 05:33 12/17/19 05:33 12/14/19 12/16/19 12/16/19 04:11 16:13 20:16 WBC 16.2 H 15.7 H RBC 2.71 L 2.17 L Hgb 8.2 L 6.6 L Hct 23.9 L 19.4 L MCV 88 89 MCH 30.3 30.3 MCHC 34.3 34.0 RDW 16.2 H 16.1 H Plt Count 218 190 Sodium Potassium Chloride Carbon Dioxide Anion Gap BUN Creatinine Est GFR ( Amer) Glucose Calcium Magnesium Blood Type A NEGATIVE Antibody Screen NEGATIVE 12/17/19 12/17/19 12/17/19 05:33 05:33 05:53 WBC 17.5 H RBC 2.95 L Hgb 8.7 L D Hct 25.8 L MCV 87 MCH 29.6 MCHC 33.9 RDW 16.3 H Plt Count 184 Sodium 138.7 Potassium 3.2 L Chloride 110 H Carbon Dioxide 23 Anion Gap 6 BUN 11 Creatinine 0.71 Est GFR ( Amer) > 60 Glucose 98 Calcium 7.1 L Magnesium 1.6 Blood Type Antibody Screen 12/14/19 13:09 Tracheal Aspirate Gram Stain - Final 12/14/19 13:09 Tracheal Aspirate Sputum Culture - Final Pseudomonas Aeruginosa Haemophilus Influenzae Reduced Normal Andree 12/15/19 03:52 NT-Pro-B Natriuret Pep 2080 H Impressions: Head CT 12/14/19 04:58 IMPRESSION: No acute intracranial abnormality TECHNICAL DOCUMENTATION: Quality ID # 436: Final reports with documentation of one or more dose reduction techniques (e.g., Automated exposure control, adjustment of the mA and/or kV according to patient size, use of iterative reconstruction technique) copyright 2011 [employer]- All Rights Reserved Chest X-Ray 12/16/19 06:00 IMPRESSION: Improved but persistent perihilar patchy opacities, right greater than left, possibly edema or infection. Assessment and Plan - Diagnosis (1) Anemia due to acute blood loss Is this a current diagnosis for this admission?: Yes (2) COPD (chronic obstructive pulmonary disease) Qualifiers: COPD type: chronic bronchitis Chronic bronchitis type: simple Qualified Code(s): J41.0 - Simple chronic bronchitis Is this a current diagnosis for this admission?: Yes (3) Chronic gastritis with bleeding Is this a current diagnosis for this admission?: Yes (4) Prolonged INR Is this a current diagnosis for this admission?: Yes (5) Upper GI bleed Is this a current diagnosis for this admission?: Yes (6) Pseudomonas pneumonia Is this a current diagnosis for this admission?: Yes (7) Haemophilus influenzae pneumonia Is this a current diagnosis for this admission?: Yes Critical Time Critical Time (minutes): 60 Level of Care: ICU -: 1. The care of a critical patient is a dynamic process. This note is a business services sales representative synopsis but static in nature. The timeframe for treatments given in order is not necessarily the actual time these treatments may have been done. 2. This patient requires critical care secondary to ongoing requirements for therapy not offered or safe outside the critical care environment. Transfer to a lower level of care will result in altered life or limb morbidity and mortality. 3. Multidisciplinary rounds completed. 4. ABCDE bundle addressed.
[2019-12-18] MEDS: POTASSI CL 20 MEQ/50 ML RIDER 20 MEQ/50 ML RTUPB IV SCH ×2 (11:45→13:37)
[2019-12-18] MEDS: LEVOFLOXACIN 750 MG/D5W RTU 750 MG/150 ML RTUPB IV SCH (12:52)
--- NOTE | 2019-12-18 15:08 | PDOC CRITICAL CARE PROG REPORT ---
General Date:: 12/18/19 ICU Day:: 5 Hospital Day:: 5 Resuscitation Status: Full Code Events in the past 12 to 24 Hours:: 12/13: Admitted to ICU with GI bleed, hemoglobin 2.3. Underwent EGD on 12/08 which revealed chronic atrophic gastritis without overt active bleeding. 12/14: Remains intubated. Easily arousable. Follows commands. Hemoglobin 9.3, stable after a total of 6 units PRBC, 2 units FFP transfused thus far. On Protonix infusion. On Precedex for sedation. Got vitamin K 10 mg per NG tube yesterday for coagulopathy. 12/15: Successfully extubated yesterday. On room air. Passed bedside swallow evaluation. Ate lunch. Hemoglobin 9.3, stable. Started on Rocephin for gram- negative rods in tracheal aspirate, which have isolated Pseudomonas aeruginosa and Haemophilus influenzae. 12/16: Remains extubated. On room air. Had multiple episodes of hematemesis yesterday afternoon. Hemoglobin 6.6. He was transfused 2 units PRBC with appropriate increase to 8.7. Antibiotics yesterday were changed from Rocephin to levofloxacin/SUSAN for Pseudomonas and Haemophilus influenzae. 12/17: Has done well in the interim. Remains extubated. On room air. No subsequent bouts of emesis. Had tagged RBC bleeding scan yesterday in nuclear medicine, which showed no signs of overt bleeding. Hemoglobin 7.8. On levofloxacin/SUSAN. Tolerating clear liquid diet. DVT PROPHYLAXIS: SCDs (chemoprophylaxis contraindicated due to GI bleed). GI PROPHYLAXIS: Protonix. Review of systems relevant to events:: Gastrointestinal: Upper GI bleed Neurologic: Seizures Cardiovascular: Hypotension Reason for ICU Addmission:: Upper GI bleed, seizure, hypotension, encounter for weaning from mechanical ventilator - Medications: Medications reviewed and adjusted accordingly: Yes Physical Exam Vital Signs: Temp Pulse Resp BP Pulse Ox 99.0 F 95 26 H 121/72 100 12/18/19 08:00 12/18/19 10:00 12/18/19 10:00 12/18/19 10:00 12/18/19 10:00 Intake & Output 12/17/19 12/18/19 12/19/19 06:59 06:59 06:59 Intake Total 3976.2 1618.2 1311.2 Output Total 2004 250 225 Balance 1971.2 1368.2 1086.2 Weight 81 kg 81.5 kg Weight/Height Weight 81.5 kg Height 1.8 m General appearance: PRESENT: no acute distress, well-developed, well-nourished Head exam: PRESENT: atraumatic, normocephalic Mouth exam: PRESENT: moist, tongue midline Neck exam: ABSENT: carotid bruit, JVD, lymphadenopathy, thyromegaly Respiratory exam: PRESENT: clear to auscultation caity. ABSENT: rales, rhonchi, wheezes Cardiovascular exam: PRESENT: RRR. ABSENT: diastolic murmur, rubs, systolic murmur GI/Abdominal exam: PRESENT: normal bowel sounds, soft. ABSENT: distended, guarding, mass, organolmegaly, rebound, tenderness Extremities exam: PRESENT: full ROM. ABSENT: calf tenderness, clubbing, pedal edema Neurological exam: PRESENT: alert, awake, oriented to person, oriented to place, oriented to time, oriented to situation, CN II-XII grossly intact. ABSENT: motor sensory deficit Laboratory/Radiographs Laboratory Results: 12/18/19 04:03 12/18/19 04:03 12/17/19 12/17/19 12/18/19 16:35 22:24 04:03 WBC 20.0 H 19.5 H 17.7 H RBC 2.76 L 2.84 L 2.65 L Hgb 8.2 L 8.4 L 7.8 L Hct 24.4 L 25.1 L 23.3 L MCV 89 88 88 MCH 29.7 29.4 29.5 MCHC 33.6 33.3 33.6 RDW 16.2 H 17.0 H 16.5 H Plt Count 205 215 220 Sodium Potassium Chloride Carbon Dioxide Anion Gap BUN Creatinine Est GFR ( Amer) Glucose Calcium Phosphorus Magnesium 12/18/19 04:03 WBC RBC Hgb Hct MCV MCH MCHC RDW Plt Count Sodium 136.9 L Potassium 3.7 Chloride 110 H Carbon Dioxide 23 Anion Gap 4 L BUN 8 Creatinine 0.68 Est GFR ( Amer) > 60 Glucose 88 Calcium 7.3 L Phosphorus 2.3 L Magnesium 1.6 12/15/19 03:52 NT-Pro-B Natriuret Pep 2080 H Impressions: Head CT 12/14/19 04:58 IMPRESSION: No acute intracranial abnormality TECHNICAL DOCUMENTATION: Quality ID # 436: Final reports with documentation of one or more dose reduction techniques (e.g., Automated exposure control, adjustment of the mA and/or kV according to patient size, use of iterative reconstruction technique) copyright 2011 [employer]- All Rights Reserved GI Bleed Scan Nuclear Medicine 12/17/19 00:00 IMPRESSION: NORMAL RADIONUCLIDE GASTROINTESTINAL BLEEDING STUDY. Chest X-Ray 12/18/19 05:00 IMPRESSION: Interval removal of the enteric tube and improved opacities in the mid to inferior aspect of the lungs. All labs, radiographs, diagnostic studies and EKGs were personally reviewed: Yes In addition, reports of radiographic and diagnostic studies were read: Yes Assessment and Plan - Diagnosis (1) Pulmonary edema Qualifiers: Chronicity: acute Qualified Code(s): J81.0 - Acute pulmonary edema Is this a current diagnosis for this admission?: Yes Plan: Furosemide 40 mg IV single dose. (2) Anemia due to acute blood loss Is this a current diagnosis for this admission?: Yes (3) COPD (chronic obstructive pulmonary disease) Qualifiers: COPD type: chronic bronchitis Chronic bronchitis type: simple Qualified Code(s): J41.0 - Simple chronic bronchitis Is this a current diagnosis for this admission?: Yes (4) Chronic gastritis with bleeding Is this a current diagnosis for this admission?: Yes (5) Prolonged INR Is this a current diagnosis for this admission?: Yes (6) Upper GI bleed Is this a current diagnosis for this admission?: Yes (7) Pseudomonas pneumonia Is this a current diagnosis for this admission?: Yes Plan: Start Levaquin/SUSAN. (8) Haemophilus influenzae pneumonia Is this a current diagnosis for this admission?: Yes Plan: Start Levaquin/SUSAN. Critical Time Critical Time (minutes): 60 Level of Care: ICU -: 1. The care of a critical patient is a dynamic process. This note is a retail sales representative synopsis but static in nature. The timeframe for treatments given in order is not necessarily the actual time these treatments may have been done. 2. This patient requires critical care secondary to ongoing requirements for therapy not offered or safe outside the critical care environment. Transfer to a lower level of care will result in altered life or limb morbidity and mortality. 3. Multidisciplinary rounds completed. 4. ABCDE bundle addressed.
[2019-12-18] MEDS ORDERED: PANTOPRAZOLE SODIUM 40 MG VIAL IV SCH (18:00)
[2019-12-19] MEDS: PANTOPRAZOLE SODIUM 40 MG VIAL IV SCH ×2 (05:03→18:19)
[2019-12-19 06:15] LABS: HEMATOCRIT 21.2 % (37.9-51.0); MEAN CORPUSCULAR HEMOGLOBIN 29.8 pg (27.0-33.4); MEAN CORPUSCULAR VOLUME 88 fl (80-97); PLATELET COUNT 238 10^3/uL (150-450); RED BLOOD COUNT 2.42 10^6/uL (4.35-5.55); RED CELL DISTRIBUTION WIDTH 16.3 % (11.5-14.0); WHITE BLOOD COUNT 14.5 10^3/uL (4.0-10.5)
[2019-12-19 06:20] LABS: HEMOGLOBIN 7.2 g/dL (13.5-17.0)
[2019-12-19 06:27] LABS: BLOOD UREA NITROGEN 6 mg/dL (7-20); CALCIUM 7.4 mg/dL (8.4-10.2); CARBON DIOXIDE 25 mmol/L (22-30); CHLORIDE 103 mmol/L (98-107); GLUCOSE 101 mg/dL (75-110); POTASSIUM 4.1 mmol/L (3.6-5.0)
[2019-12-19 06:28] LABS: ANION GAP 4 (5-19)
[2019-12-19] MEDS: TOBRAMYCIN SULFATE NEB 40 MG/ML 30 ML NEB SCH ×2 (07:54→20:10)
[2019-12-19] MEDS: MAGNESIUM SULFATE/D5W 1 GM/100 ML RTUPB IV SCH ×2 (09:05→11:04)
[2019-12-19] MEDS: LEVOFLOXACIN 750 MG/D5W RTU 750 MG/150 ML RTUPB IV SCH (12:37)
--- NOTE | 2019-12-19 16:48 | PDOC PROGRESS REPORT ---
Subjective Reason For Visit: UPPER GI BLEED,SEIZURE,HYPOTENSION,ENCOUNTER FOR Physical Exam Vital Signs: Temp Pulse Resp BP Pulse Ox 98.7 F 78 24 H 133/69 H 100 12/19/19 11:02 12/19/19 11:02 12/19/19 11:02 12/19/19 11:02 12/19/19 11:02 Intake & Output 12/18/19 12/19/19 12/20/19 06:59 06:59 06:59 Intake Total 1618.2 2378.2 1811 Output Total 250 3900 900 Balance 1368.2 -1521.8 911 Weight 81.5 kg 74.3 kg 74.3 kg Results Laboratory Results: 12/19/19 05:43 12/19/19 05:43 12/19/19 12/19/19 05:43 05:43 WBC 14.5 H RBC 2.42 L Hgb 7.2 L Hct 21.2 L MCV 88 MCH 29.8 MCHC 34.0 RDW 16.3 H Plt Count 238 Sodium 131.6 L Potassium 4.1 Chloride 103 Carbon Dioxide 25 Anion Gap 4 L BUN 6 L Creatinine 0.72 Est GFR ( Amer) > 60 Glucose 101 Calcium 7.4 L Magnesium 1.4 L 12/15/19 03:52 NT-Pro-B Natriuret Pep 2080 H Impressions: Head CT 12/14/19 04:58 IMPRESSION: No acute intracranial abnormality TECHNICAL DOCUMENTATION: Quality ID # 436: Final reports with documentation of one or more dose reduction techniques (e.g., Automated exposure control, adjustment of the mA and/or kV according to patient size, use of iterative reconstruction technique) copyright 2011 [employer]- All Rights Reserved GI Bleed Scan Nuclear Medicine 12/17/19 00:00 IMPRESSION: NORMAL RADIONUCLIDE GASTROINTESTINAL BLEEDING STUDY. Chest X-Ray 12/18/19 05:00 IMPRESSION: Interval removal of the enteric tube and improved opacities in the mid to inferior aspect of the lungs. Assessment and Plan - Diagnosis (1) Anemia due to acute blood loss Is this a current diagnosis for this admission?: Yes Plan: Monitoring hemoglobin. He is down a little bit today from yesterday but this could be from dilution. We are repeating a CBC this afternoon. (2) COPD (chronic obstructive pulmonary disease) Qualifiers: COPD type: chronic bronchitis Chronic bronchitis type: simple Qualified Code(s): J41.0 - Simple chronic bronchitis Is this a current diagnosis for this admission?: Yes Plan: Not acutely exacerbated (3) Chronic gastritis with bleeding Qualifiers: Gastritis type: alcoholic Qualified Code(s): K29.21 - Alcoholic gastritis with bleeding Is this a current diagnosis for this admission?: Yes Plan: He is on Protonix twice a day. (4) Current every day smoker Is this a current diagnosis for this admission?: Yes Plan: Have strongly encouraged cessation (5) Haemophilus influenzae pneumonia Qualifiers: Laterality: unspecified laterality Lung location: unspecified part of lung Qualified Code(s): J14 - Pneumonia due to Hemophilus influenzae Is this a current diagnosis for this admission?: Yes Plan: On Levaquin (6) Hypocalcemia Is this a current diagnosis for this admission?: Yes Plan: We will replace with IV supplement as needed (7) Prolonged INR Is this a current diagnosis for this admission?: Yes Plan: He received some FFP. Suspect he may have some baseline liver disease that was exacerbated by his anemia on presentation. (8) Pseudomonas pneumonia Qualifiers: Laterality: unspecified laterality Lung location: unspecified part of lung Qualified Code(s): J15.1 - Pneumonia due to Pseudomonas Is this a current diagnosis for this admission?: Yes Plan: Sensitive to Levaquin (9) Pulmonary edema Qualifiers: Chronicity: acute Qualified Code(s): J81.0 - Acute pulmonary edema Is this a current diagnosis for this admission?: Yes Plan: Resolved (10) Upper GI bleed Is this a current diagnosis for this admission?: Yes Plan: For monitoring to see if he has further episodes of bleeding. If so, it is likely a small bowel source. If he has persistent bleeding he may need transfer to a center where a mesenteric angiography with embolization can be performed. (11) Alcohol abuse Is this a current diagnosis for this admission?: Yes Plan: Monitoring for signs of withdrawal - Time Time Spent with patient: 25-34 minutes
[2019-12-19 18:00] LABS: HEMATOCRIT 23.4 % (37.9-51.0); MEAN CORPUSCULAR HEMOGLOBIN 29.6 pg (27.0-33.4); MEAN CORPUSCULAR HGB CONC 33.7 g/dL (32.0-36.0); MEAN CORPUSCULAR VOLUME 88 fl (80-97); PLATELET COUNT 288 10^3/uL (150-450); RED BLOOD COUNT 2.65 10^6/uL (4.35-5.55); RED CELL DISTRIBUTION WIDTH 15.5 % (11.5-14.0); WHITE BLOOD COUNT 14.2 10^3/uL (4.0-10.5)
[2019-12-19 18:02] LABS: HEMOGLOBIN 7.9 g/dL (13.5-17.0)
[2019-12-19] MEDS: IPRATROPIUM/ALBUTEROL 0.5-2.5 MG/3 ML AMPUL NEB PRN (20:09)
[2019-12-20] MEDS: PANTOPRAZOLE SODIUM 40 MG VIAL IV SCH ×2 (05:13→17:20)
[2019-12-20] MEDS: TOBRAMYCIN SULFATE NEB 40 MG/ML 30 ML NEB SCH ×2 (08:13→19:45)
[2019-12-20 09:40] LABS: HEMATOCRIT 21.9 % (37.9-51.0); MEAN CORPUSCULAR HEMOGLOBIN 29.5 pg (27.0-33.4); MEAN CORPUSCULAR HGB CONC 33.9 g/dL (32.0-36.0); MEAN CORPUSCULAR VOLUME 87 fl (80-97); PLATELET COUNT 295 10^3/uL (150-450); RED BLOOD COUNT 2.52 10^6/uL (4.35-5.55); WHITE BLOOD COUNT 13.7 10^3/uL (4.0-10.5)
[2019-12-20 09:42] LABS: HEMOGLOBIN 7.4 g/dL (13.5-17.0)
[2019-12-20 09:53] LABS: ANION GAP 5 (5-19); BLOOD UREA NITROGEN 5 mg/dL (7-20); CALCIUM 7.8 mg/dL (8.4-10.2); CARBON DIOXIDE 24 mmol/L (22-30); CHLORIDE 102 mmol/L (98-107); GLUCOSE 94 mg/dL (75-110); POTASSIUM 4.2 mmol/L (3.6-5.0)
[2019-12-20] MEDS: LEVOFLOXACIN 750 MG/D5W RTU 750 MG/150 ML RTUPB IV SCH (11:01)
--- NOTE | 2019-12-20 16:37 | PDOC PROGRESS REPORT ---
Subjective Progress Note for:: 12/20/19 Subjective:: No adverse events overnight. No new complaints. He tolerated advancement of his diet last night. No evidence of any blood loss. Hemoglobin is been stable. Reason For Visit: UPPER GI BLEED,SEIZURE,HYPOTENSION,ENCOUNTER FOR Physical Exam Vital Signs: Temp Pulse Resp BP Pulse Ox 98.3 F 80 18 114/55 L 97 12/20/19 11:08 12/20/19 14:00 12/20/19 11:08 12/20/19 11:08 12/20/19 11:08 Intake & Output 12/19/19 12/20/19 12/21/19 06:59 06:59 06:59 Intake Total 2378.2 2941 1250 Output Total 3900 2225 450 Balance -1521.8 716 800 Weight 74.3 kg 85.5 kg General appearance: PRESENT: no acute distress, cooperative Respiratory exam: PRESENT: clear to auscultation caity, symmetrical, unlabored. ABSENT: accessory muscle use, chest wall tenderness, prolonged expiratory phas, rhonchi, tachypnea, wheezes Cardiovascular exam: PRESENT: RRR, +S1, +S2 Pulses: PRESENT: normal carotid pulses Vascular exam: PRESENT: normal capillary refill GI/Abdominal exam: PRESENT: normal bowel sounds, soft. ABSENT: distended, guarding, rebound, tenderness Extremities exam: ABSENT: clubbing, pedal edema Musculoskeletal exam: PRESENT: normal inspection. ABSENT: deformity Neurological exam: PRESENT: alert, awake, oriented to person, oriented to place, oriented to situation Psychiatric exam: PRESENT: appropriate affect, normal mood Skin exam: PRESENT: dry, warm Results Laboratory Results: 12/20/19 08:50 12/20/19 08:50 12/19/19 12/20/19 12/20/19 17:50 08:50 08:50 WBC 14.2 H 13.7 H RBC 2.65 L 2.52 L Hgb 7.9 L 7.4 L Hct 23.4 L 21.9 L MCV 88 87 MCH 29.6 29.5 MCHC 33.7 33.9 RDW 15.5 H 16.0 H Plt Count 288 295 Sodium 130.6 L Potassium 4.2 Chloride 102 Carbon Dioxide 24 Anion Gap 5 BUN 5 L Creatinine 0.67 Est GFR ( Amer) > 60 Glucose 94 Calcium 7.8 L Magnesium 1.9 12/15/19 03:52 NT-Pro-B Natriuret Pep 0 H Impressions: Head CT 12/14/19 04:58 IMPRESSION: No acute intracranial abnormality TECHNICAL DOCUMENTATION: Quality ID # 436: Final reports with documentation of one or more dose reduction techniques (e.g., Automated exposure control, adjustment of the mA and/or kV according to patient size, use of iterative reconstruction technique) copyright 2011 [employer]- All Rights Reserved GI Bleed Scan Nuclear Medicine 12/17/19 00:00 IMPRESSION: NORMAL RADIONUCLIDE GASTROINTESTINAL BLEEDING STUDY. Chest X-Ray 12/18/19 05:00 IMPRESSION: Interval removal of the enteric tube and improved opacities in the mid to inferior aspect of the lungs. Assessment and Plan - Diagnosis (1) Anemia due to acute blood loss Is this a current diagnosis for this admission?: Yes Plan: Monitoring hemoglobin. Hemoglobin has remained stable. We are advancing his diet. Holding off on transfusion for now. (2) COPD (chronic obstructive pulmonary disease) Qualifiers: COPD type: chronic bronchitis Chronic bronchitis type: simple Qualified Code(s): J41.0 - Simple chronic bronchitis Is this a current diagnosis for this admission?: Yes Plan: Not acutely exacerbated (3) Chronic gastritis with bleeding Qualifiers: Gastritis type: alcoholic Qualified Code(s): K29.21 - Alcoholic gastritis with bleeding Is this a current diagnosis for this admission?: Yes Plan: He is on Protonix twice a day. (4) Current every day smoker Is this a current diagnosis for this admission?: Yes Plan: Have strongly encouraged cessation (5) Haemophilus influenzae pneumonia Qualifiers: Laterality: unspecified laterality Lung location: unspecified part of lung Qualified Code(s): J14 - Pneumonia due to Hemophilus influenzae Is this a current diagnosis for this admission?: Yes Plan: On Levaquin (6) Hypocalcemia Is this a current diagnosis for this admission?: Yes Plan: We will replace with IV supplement as needed (7) Prolonged INR Is this a current diagnosis for this admission?: Yes Plan: He received some FFP. Suspect he may have some baseline liver disease that was exacerbated by his anemia on presentation. (8) Pseudomonas pneumonia Qualifiers: Laterality: unspecified laterality Lung location: unspecified part of lung Qualified Code(s): J15.1 - Pneumonia due to Pseudomonas Is this a current diagnosis for this admission?: Yes Plan: Sensitive to Levaquin (9) Pulmonary edema Qualifiers: Chronicity: acute Qualified Code(s): J81.0 - Acute pulmonary edema Is this a current diagnosis for this admission?: Yes Plan: Resolved (10) Upper GI bleed Is this a current diagnosis for this admission?: Yes Plan: For monitoring to see if he has further episodes of bleeding. If so, it is likely a small bowel source. If he has persistent bleeding he may need transfer to a center where a mesenteric angiography with embolization can be performed. (11) Alcohol abuse Is this a current diagnosis for this admission?: Yes Plan: Monitoring for signs of withdrawal - Time Time Spent with patient: 15-24 minutes
[2019-12-20] MEDS: IPRATROPIUM/ALBUTEROL 0.5-2.5 MG/3 ML AMPUL NEB PRN (19:45)
[2019-12-21] MEDS: PANTOPRAZOLE SODIUM 40 MG VIAL IV SCH ×2 (05:41→17:37)
[2019-12-21 07:04] LABS: HEMATOCRIT 21.9 % (37.9-51.0); MEAN CORPUSCULAR HEMOGLOBIN 29.5 pg (27.0-33.4); MEAN CORPUSCULAR HGB CONC 33.6 g/dL (32.0-36.0); MEAN CORPUSCULAR VOLUME 88 fl (80-97); PLATELET COUNT 344 10^3/uL (150-450); RED BLOOD COUNT 2.49 10^6/uL (4.35-5.55); RED CELL DISTRIBUTION WIDTH 15.9 % (11.5-14.0); WHITE BLOOD COUNT 12.7 10^3/uL (4.0-10.5)
[2019-12-21 07:12] LABS: HEMOGLOBIN 7.3 g/dL (13.5-17.0)
[2019-12-21 07:22] LABS: BLOOD UREA NITROGEN 4 mg/dL (7-20); CALCIUM 7.9 mg/dL (8.4-10.2); GLUCOSE 95 mg/dL (75-110); POTASSIUM 4.2 mmol/L (3.6-5.0)
[2019-12-21 07:27] LABS: CARBON DIOXIDE 24 mmol/L (22-30); CHLORIDE 105 mmol/L (98-107)
[2019-12-21 07:32] LABS: ANION GAP 4 (5-19)
[2019-12-21] MEDS: IPRATROPIUM/ALBUTEROL 0.5-2.5 MG/3 ML AMPUL NEB PRN (08:06)
[2019-12-21] MEDS: TOBRAMYCIN SULFATE NEB 40 MG/ML 30 ML NEB SCH ×2 (08:06→20:10)
[2019-12-21] MEDS: LEVOFLOXACIN 750 MG/D5W RTU 750 MG/150 ML RTUPB IV SCH (12:24)
--- NOTE | 2019-12-21 14:46 | PDOC PROGRESS REPORT ---
Subjective Progress Note for:: 12/21/19 Subjective:: Adverse events overnight. No new complaints. His left arm is still a little swollen but he says he can move it and use his hand just fine. He said it does not feel too bad. He is not had any numbness or tingling in his fingertips. No episodes of bleeding. Tolerating an advanced diet. Reason For Visit: UPPER GI BLEED,SEIZURE,HYPOTENSION,ENCOUNTER FOR Physical Exam Vital Signs: Temp Pulse Resp BP Pulse Ox 98.3 F 87 16 126/54 H 100 12/21/19 10:58 12/21/19 10:58 12/21/19 10:58 12/21/19 10:58 12/21/19 10:58 Intake & Output 12/20/19 12/21/19 12/22/19 06:59 06:59 06:59 Intake Total 2941 2420 986 Output Total 2225 1800 Balance 716 620 986 Weight 85.5 kg 84.5 kg General appearance: PRESENT: no acute distress, cooperative Respiratory exam: PRESENT: clear to auscultation caity, symmetrical, unlabored. ABSENT: accessory muscle use, chest wall tenderness, prolonged expiratory phas, rhonchi, tachypnea, wheezes Cardiovascular exam: PRESENT: RRR, +S1, +S2 Pulses: PRESENT: normal carotid pulses Vascular exam: PRESENT: normal capillary refill GI/Abdominal exam: PRESENT: normal bowel sounds, soft. ABSENT: distended, guarding, rebound, tenderness Extremities exam: ABSENT: clubbing, pedal edema Musculoskeletal exam: PRESENT: normal inspection. ABSENT: deformity Neurological exam: PRESENT: alert, awake, oriented to person, oriented to place, oriented to situation Psychiatric exam: PRESENT: appropriate affect, normal mood Skin exam: PRESENT: dry, warm Results Laboratory Results: 12/21/19 06:00 12/21/19 06:00 12/21/19 12/21/19 06:00 06:00 WBC 12.7 H RBC 2.49 L Hgb 7.3 L Hct 21.9 L MCV 88 MCH 29.5 MCHC 33.6 RDW 15.9 H Plt Count 344 Sodium 133.1 L Potassium 4.2 Chloride 105 Carbon Dioxide 24 Anion Gap 4 L BUN 4 L Creatinine 0.73 Est GFR ( Amer) > 60 Glucose 95 Calcium 7.9 L Magnesium 1.8 12/15/19 03:52 NT-Pro-B Natriuret Pep 2080 H Impressions: Head CT 12/14/19 04:58 IMPRESSION: No acute intracranial abnormality TECHNICAL DOCUMENTATION: Quality ID # 436: Final reports with documentation of one or more dose reduction techniques (e.g., Automated exposure control, adjustment of the mA and/or kV according to patient size, use of iterative reconstruction technique) copyright 2011 [employer]- All Rights Reserved GI Bleed Scan Nuclear Medicine 12/17/19 00:00 IMPRESSION: NORMAL RADIONUCLIDE GASTROINTESTINAL BLEEDING STUDY. Chest X-Ray 12/18/19 05:00 IMPRESSION: Interval removal of the enteric tube and improved opacities in the mid to inferior aspect of the lungs. Assessment and Plan - Diagnosis (1) Anemia due to acute blood loss Is this a current diagnosis for this admission?: Yes Plan: Monitoring hemoglobin. Hemoglobin has remained stable. He is on a regular diet. Holding off on transfusion for now. (2) COPD (chronic obstructive pulmonary disease) Qualifiers: COPD type: chronic bronchitis Chronic bronchitis type: simple Qualified Code(s): J41.0 - Simple chronic bronchitis Is this a current diagnosis for this admission?: Yes Plan: Not acutely exacerbated (3) Chronic gastritis with bleeding Qualifiers: Gastritis type: alcoholic Qualified Code(s): K29.21 - Alcoholic gastritis with bleeding Is this a current diagnosis for this admission?: Yes Plan: He is on Protonix twice a day. (4) Current every day smoker Is this a current diagnosis for this admission?: Yes Plan: Have strongly encouraged cessation (5) Haemophilus influenzae pneumonia Qualifiers: Laterality: unspecified laterality Lung location: unspecified part of lung Qualified Code(s): J14 - Pneumonia due to Hemophilus influenzae Is this a current diagnosis for this admission?: Yes Plan: On Levaquin (6) Hypocalcemia Is this a current diagnosis for this admission?: Yes Plan: We will replace with IV supplement as needed (7) Prolonged INR Is this a current diagnosis for this admission?: Yes Plan: He received some FFP. Suspect he may have some baseline liver disease that was exacerbated by his anemia on presentation. (8) Pseudomonas pneumonia Qualifiers: Laterality: unspecified laterality Lung location: unspecified part of lung Qualified Code(s): J15.1 - Pneumonia due to Pseudomonas Is this a current diagnosis for this admission?: Yes Plan: Sensitive to Levaquin (9) Pulmonary edema Qualifiers: Chronicity: acute Qualified Code(s): J81.0 - Acute pulmonary edema Is this a current diagnosis for this admission?: Yes Plan: Resolved (10) Upper GI bleed Is this a current diagnosis for this admission?: Yes Plan: For monitoring to see if he has further episodes of bleeding. If so, it is likely a small bowel source. If he has persistent bleeding he may need transfer to a center where a mesenteric angiography with embolization can be performed. If he does not bleed further and can be discharged home, he would be a good candidate for a capsule endoscopy as an outpatient. He has seen Dr. Amezquita in the past and we will see if we can get him a follow-up there. (11) Alcohol abuse Is this a current diagnosis for this admission?: Yes Plan: Monitoring for signs of withdrawal (12) Left arm swelling Is this a current diagnosis for this admission?: Yes Plan: We think that it is probably from where his IV extravasated, but it is not resolving very fast, so ordered ultrasound just to rule out DVT. - Time Time Spent with patient: 25-34 minutes
[2019-12-22] MEDS: PANTOPRAZOLE SODIUM 40 MG VIAL IV SCH (05:24)
[2019-12-22 05:55] LABS: HEMATOCRIT 21.7 % (37.9-51.0); MEAN CORPUSCULAR HEMOGLOBIN 29.9 pg (27.0-33.4); MEAN CORPUSCULAR HGB CONC 34.5 g/dL (32.0-36.0); MEAN CORPUSCULAR VOLUME 87 fl (80-97); PLATELET COUNT 384 10^3/uL (150-450); RED BLOOD COUNT 2.51 10^6/uL (4.35-5.55); RED CELL DISTRIBUTION WIDTH 15.8 % (11.5-14.0)
[2019-12-22 05:58] LABS: HEMOGLOBIN 7.5 g/dL (13.5-17.0)
[2019-12-22 06:15] LABS: BLOOD UREA NITROGEN 6 mg/dL (7-20); CALCIUM 8.1 mg/dL (8.4-10.2); CHLORIDE 104 mmol/L (98-107); GLUCOSE 95 mg/dL (75-110); POTASSIUM 4.1 mmol/L (3.6-5.0)
[2019-12-22 06:20] LABS: ANION GAP 5 (5-19); CARBON DIOXIDE 25 mmol/L (22-30)
[2019-12-22] MEDS: TOBRAMYCIN SULFATE NEB 40 MG/ML 30 ML NEB SCH (07:55)
--- NOTE | 2019-12-22 08:29 | RADIOLOGY REPORT (SQ) ---
EXAM DESCRIPTION: VENOUS UNILATERAL UPPER IMAGES COMPLETED DATE/TIME: 12/21/2019 7:44 pm REASON FOR STUDY: left upper extremity edema COMPARISON: None. TECHNIQUE: Dynamic and static welch scale and color images acquired of the left arm venous system. Se lected spectral images acquired with additional compression and augmentation maneuvers. The contralat eral subclavian vein and internal jugular vein were also imaged. Images stored on PACS. LIMITATIONS: None. FINDINGS: INTERNAL JUGULAR VEIN: Normal phasicity, compression, augmentation. No visualized echogeni c material on welch scale. No defects on color images. Comparison opposite side normal. SUBCLAVIAN VEIN: Normal compression, augmentation. No visualized echogenic material on welch scale. No defects on color images. AXILLARY VEIN: Normal compression, augmentation. No visualized echogenic material on welch scale. No d efects on color images. BRACHIAL VEIN: Normal compression, augmentation. No visualized echogenic material on welch scale. No d efects on color images. BASILIC VEIN: Normal compression, augmentation. No visualized echogenic material on welch scale. No de fects on color images. CEPHALIC VEIN: Occlusive thrombus. OTHER: No other significant finding. CONTRALATERAL SUBCLAVIAN VEIN AND INTERNAL JUGULAR VEIN: Normal phasicity, compression and augmentation. No visualized echogenic material on welch scale. No de fects on color images. IMPRESSION: Acute deep vein thrombosis in the cephalic vein. COMMENT: Preliminary results were given to ordering physician at 1845 hours. TECHNICAL DOCUMENTATION: JOB ID: [id number] 2010 [employer]- All Rights Reserved Reading location - IP/workstation name: [email or web address]
[2019-12-22] MEDS: LEVOFLOXACIN 750 MG/D5W RTU 750 MG/150 ML RTUPB IV SCH (11:33)
[2019-12-22] MEDS ORDERED: LEVOFLOXACIN 750 MG TABLET PO ONE (13:00)
[2019-12-22 14:22] VITALS: BP 119/56
--- NOTE | 2019-12-22 16:25 | PDOC DISCHARGE SUMMARY ---
Impression - Admit/DC Date/PCP Admission Date/Primary Care Provider: 12/14/19 06:27 Discharge Date: 12/22/19 - Discharge Diagnosis (1) Anemia due to acute blood loss Is this a current diagnosis for this admission?: Yes (2) COPD (chronic obstructive pulmonary disease) Is this a current diagnosis for this admission?: Yes (3) Chronic gastritis with bleeding Is this a current diagnosis for this admission?: Yes (4) Current every day smoker Is this a current diagnosis for this admission?: Yes (5) Haemophilus influenzae pneumonia Is this a current diagnosis for this admission?: Yes (6) Hypocalcemia Is this a current diagnosis for this admission?: Yes (7) Prolonged INR Is this a current diagnosis for this admission?: Yes (8) Pseudomonas pneumonia Is this a current diagnosis for this admission?: Yes (9) Pulmonary edema Is this a current diagnosis for this admission?: Yes (10) Upper GI bleed Is this a current diagnosis for this admission?: Yes (11) Alcohol abuse Is this a current diagnosis for this admission?: Yes (12) Left arm swelling Is this a current diagnosis for this admission?: Yes - Additional Information Resuscitation Status: Full Code Discharge Diet: Regular Discharge Activity: Activity As Tolerated, Balance Activity w/Rest, Slowly Incre ase Activity Referrals: MINH AMEZQUITA MD [ACTIVE STAFF] - 12/30/19 3:25 pm () Prescriptions: Ferrous Sulfate [Feosol 325 mg Tablet] 325 mg PO BID #60 tab Pantoprazole Sodium [Protonix [address] Tablet] 40 mg PO QAMPM #60 tablet. Home Medications: Ferrous Sulfate [Feosol 325 mg Tablet] 325 mg PO BID #60 tab 12/22/19 Pantoprazole Sodium [Protonix [address] Tablet] 40 mg PO QAMPM #60 tablet. 12/22/19 History of Present Illiness History of Present Illness: AZAR LIMA is a 64 year old male with a past medical history significant for alcohol abuse, smoking tobacco abuse, hypertension, anxiety, COPD, and recent discharge from an admission for upper gastrointestinal bleeding on December 09, 2019 who presented to [facility] this morning with a chief complaint of nausea, vomiting, & diarrhea. He was found to have coffee-ground emesis and dark tarry stools and lab work revealed a hemoglobin of 2.3 g/dL for which he has already received 2 PRBCs that were emergently released due to a deterioration in condition. Apparently Mr Lima was initially talking, though kind of mumbling and lethargic with the ER physician which progressed to a seizure for which he was intubated. To note, the patient has no history of seizures. He does however have an extensive history of alcohol abuse. An EGD performed on December 10, [address] Urban demonstrated thickening of the lesser curvature of the stomach for which a biopsy was performed and is pending, a sma ll hiatal hernia, with no definitive source of bleeding identified. Other notable labs are a platelet count of 168,000, a serum bicarb of 7, and an INR of 1.99. Hospital Course Hospital Course: He was intubated to protect his airway and received several units of packed red blood cells. He was seen in consultation by surgery who did not think he needed another EGD. He continued to have more bleeding and a tagged red cell scan was done but it did not show any evidence of bleeding at that time. Fortunately, his hemoglobin has remained stable for the past few days. We have slowly advanced his diet and monitor his hemoglobin. He has been tolerating a regular diet for the past couple of days. Because the site of bleeding is unknown, we decided to put him on a proton pump inhibitor twice a day for 12 weeks. Also encouraged him to take an iron supplement. Encouraged him to stop smoking and drinking alcohol. We also gave him a list of other foods and substances to avoid. He has seen Dr. Amezquita in the past for colonoscopy and we will set up an appointment for him to return to that office to arrange for a capsule endoscopy. We want to evaluate him for the possibility of a bleeding lesion in the small intestine such as an arteriovenous malformation. He was encouraged to come back to the ER if he had any recurrence of his symptoms. His labs and examination were reassuring he was discharged in stable condition. Physical Exam Vital Signs: Temp Pulse Resp BP Pulse Ox 99.1 F 84 18 123/62 98 12/22/19 13:30 12/22/19 13:30 12/22/19 13:30 12/22/19 13:30 12/22/19 13:30 Intake & Output 12/21/19 12/22/19 12/23/19 06:59 06:59 06:59 Intake Total 2420 1726 157 Output Total 1800 1050 Balance 620 676 157 Weight 84.5 kg 79.4 kg General appearance: PRESENT: no acute distress, cooperative Respiratory exam: PRESENT: clear to auscultation caity, symmetrical, unlabored. ABSENT: accessory muscle use, chest wall tenderness, prolonged expiratory phas, rhonchi, tachypnea, wheezes Cardiovascular exam: PRESENT: RRR, +S1, +S2 Pulses: PRESENT: normal carotid pulses Vascular exam: PRESENT: normal capillary refill GI/Abdominal exam: PRESENT: normal bowel sounds, soft. ABSENT: distended, guarding, rebound, tenderness Extremities exam: ABSENT: clubbing, pedal edema Musculoskeletal exam: PRESENT: normal inspection. ABSENT: deformity Neurological exam: PRESENT: alert, awake, oriented to person, oriented to place, oriented to situation Psychiatric exam: PRESENT: appropriate affect, normal mood Skin exam: PRESENT: dry, warm Results Laboratory Results: WBC 11.0 10^3/uL (4.0-10.5) H 12/22/19 05:21 RBC 2.51 10^6/uL (4.35-5.55) L 12/22/19 05:21 Hgb 7.5 g/dL (13.5-17.0) L 12/22/19 05:21 Hct 21.7 % (37.9-51.0) L 12/22/19 05:21 MCV 87 fl (80-97) 12/22/19 05:21 MCH 29.9 pg (27.0-33.4) 12/22/19 05:21 MCHC 34.5 g/dL (32.0-36.0) 12/22/19 05:21 RDW 15.8 % (11.5-14.0) H 12/22/19 05:21 Plt Count 384 10^3/uL (150-450) 12/22/19 05:21 Lymph % (Auto) Not Reportable 12/14/19 04:11 Clarke % (Auto) Not Reportable 12/14/19 04:11 Eos % (Auto) Not Reportable 12/14/19 04:11 Baso % (Auto) Not Reportable 12/14/19 04:11 Absolute Neuts (auto) Not Reportable 12/14/19 04:11 Absolute Lymphs (auto) Not Reportable 12/14/19 04:11 Absolute Monos (auto) Not Reportable 12/14/19 04:11 Absolute Eos (auto) Not Reportable 12/14/19 04:11 Absolute Basos (auto) Not Reportable 12/14/19 04:11 Total Counted 100 12/14/19 04:11 Seg Neutrophils % Not Reportable 12/14/19 04:11 Seg Neuts % (Manual) 47 % (42-78) 12/14/19 04:11 Lymphocytes % (Manual) 50 % (13-45) H 12/14/19 04:11 Monocytes % (Manual) 3 % (3-13) 12/14/19 04:11 Eosinophils % (Manual) 0 % (0-6) 12/14/19 04:11 Basophils % (Manual) 0 % (0-2) 12/14/19 04:11 Abs Neuts (Manual) 4.9 10^3/uL (1.7-8.2) 12/14/19 04:11 Abs Lymphs (Manual) 5.3 10^3/uL (0.5-4.7) H 12/14/19 04:11 Abs Monocytes (Manual) 0.3 10^3/uL (0.1-1.4) 12/14/19 04:11 Absolute Eos (Manual) 0.0 10^3/uL (0.0-0.6) 12/14/19 04:11 Abs Basophils (Manual) 0.0 10^3/uL (0.0-0.2) 12/14/19 04:11 Platelet Comment ADEQUATE 12/14/19 04:11 Polychromasia SLIGHT 12/14/19 04:11 Anisocytosis 1+ 12/14/19 04:11 Macrocytosis 2+ 12/14/19 04:11 Tear Drop Cells SLIGHT 12/14/19 04:11 Ovalocytes 1+ 12/14/19 04:11 Romaine Cells SLIGHT 12/14/19 04:11 PT 16.6 SEC (11.4-15.4) H 12/17/19 05:33 INR 1.33 12/17/19 05:33 APTT 33.6 SEC (23.5-35.8) 12/17/19 05:33 Fibrinogen 242 mg/dL (209-497) 12/14/19 04:11 Carbonic Acid 1.03 mmol/L (1.05-1.35) L 12/15/19 05:18 HCO3/H2CO3 Ratio 22:1 12/15/19 05:18 ABG pH 7.44 (7.35-7.45) 12/15/19 05:18 ABG pCO2 34.3 mmHg (35-45) L 12/15/19 05:18 ABG pO2 103.0 mmHg (80-100) H 12/15/19 05:18 ABG HCO3 23.0 mmol/L (20-24) 12/15/19 05:18 ABG Total CO2 24.0 mmol/L (23-27) 12/15/19 05:18 ABG O2 Saturation 98.0 % (94-98) 12/15/19 05:18 ABG Base Excess -0.8 mmol/L 12/15/19 05:18 FiO2 30% 12/15/19 05:18 Sodium 133.9 mmol/L (137-145) L 12/22/19 05:21 Potassium 4.1 mmol/L (3.6-5.0) 12/22/19 05:21 Chloride 104 mmol/L (98-107) 12/22/19 05:21 Carbon Dioxide 25 mmol/L (22-30) 12/22/19 05:21 Anion Gap 5 (5-19) 12/22/19 05:21 BUN 6 mg/dL (7-20) L 12/22/19 05:21 Creatinine 0.85 mg/dL (0.52-1.25) 12/22/19 05:21 Est GFR ( Amer) > 60 (>60) 12/22/19 05:21 Est GFR (MDRD) Non-Af > 60 (>60) 12/22/19 05:21 Glucose 95 mg/dL (75-110) 12/22/19 05:21 POC Glucose 88 mg/dL (70-110) 12/18/19 06:17 Lactic Acid 0.7 mmol/L (0.7-2.1) 12/16/19 04:10 Calcium 8.1 mg/dL (8.4-10.2) L 12/22/19 05:21 Phosphorus 2.3 mg/dL (2.5-4.5) L 12/18/19 04:03 Magnesium 1.9 mg/dL (1.6-2.3) 12/22/19 05:21 Total Bilirubin < 0.1 mg/dL (0.2-1.3) L 12/14/19 04:11 Direct Bilirubin 0.0 mg/dL (0.0-0.4) 12/14/19 04:11 Neonat Total Bilirubin Not Reportable 12/14/19 04:11 Neonat Direct Bilirubin Not Reportable 12/14/19 04:11 Neonat Indirect Bili Not Reportable 12/14/19 04:11 AST 26 U/L (17-59) 12/14/19 04:11 ALT 17 U/L (<50) 12/14/19 04:11 Alkaline Phosphatase 20 U/L (38-126) L 12/14/19 04:11 NT-Pro-B Natriuret Pep 2080 pg/mL (<125) H 12/15/19 03:52 Total Protein 3.4 g/dL (6.3-8.2) L 12/14/19 04:11 Albumin 1.4 g/dL (3.5-5.0) L 12/14/19 04:11 Lipase 87.7 U/L (23-300) 12/14/19 04:11 Urine Opiates Screen NEGATIVE 12/14/19 04:53 Urine Methadone Screen NEGATIVE 12/14/19 04:53 Ur Barbiturates Screen NEGATIVE 12/14/19 04:53 Ur Phencyclidine Scrn NEGATIVE 12/14/19 04:53 Ur Amphetamines Screen NEGATIVE 12/14/19 04:53 U Benzodiazepines Scrn NEGATIVE 12/14/19 04:53 Urine Cocaine Screen NEGATIVE 12/14/19 04:53 U Marijuana (THC) Screen UNCONFIRMED POSITIVE 12/14/19 04:53 Serum Alcohol < 10 mg/dL (NONE DETECTED) 12/14/19 04:11 Slides for Path Review PATHOLOGIST REVIEWED 12/14/19 04:11 Blood Type A NEGATIVE 12/14/19 04:11 Antibody Screen NEGATIVE 12/14/19 04:11 Crossmatch See Detail 12/14/19 04:11 12/15/19 03:52 NT-Pro-B Natriuret Pep 2080 H Impressions: Chest X-Ray 12/14/19 04:20 IMPRESSION: 1. Intubated 2. Mild interstitial edema in the right upper lobe and left lower lobe with partial atelectasis of the left lower lobe. 3. Enteric tube tip is in the stomach, with the proximal sidehole is in the distal esophagus. Consider advancing approximately 8-[address] 12/14/19 04:58 IMPRESSION: No acute intracranial abnormality TECHNICAL DOCUMENTATION: Quality ID # 436: Final reports with documentation of one or more dose reduction techniques (e.g., Automated exposure control, adjustment of the mA and/or kV according to patient size, use of iterative reconstruction technique) copyright 2011 [employer]- All Rights Reserved Chest X-Ray 12/14/19 08:47 IMPRESSION: 1. The tip of the endotracheal tube projects 6.3 cm above the ammon. The tip and side hole of the enteric tube project within the gastric lumen. 2. Unchanged left retrocardiac opacities. Chest X-Ray 12/15/19 05:00 IMPRESSION: Moderate central edema pattern, right more than left. Interval worsening. Chest X-Ray 12/16/19 00:00 IMPRESSION: 1. Enteric tube with distal tip in the expected location of the proximal stomach. 2. Interval worsening of patchy opacities overlying the bilateral right greater than left mid to lower lung zones. Chest X-Ray 12/16/19 06:00 IMPRESSION: Improved but persistent perihilar patchy opacities, right greater than left, possibly edema or infection. GI Bleed Scan Nuclear Medicine 12/17/19 00:00 IMPRESSION: NORMAL RADIONUCLIDE GASTROINTESTINAL BLEEDING STUDY. Chest X-Ray 12/18/19 05:00 IMPRESSION: Interval removal of the enteric tube and improved opacities in the mid to inferior aspect of the lungs. Venous Doppler Study 12/21/19 00:00 IMPRESSION: Acute deep vein thrombosis in the cephalic vein. Plan Time Spent: Greater than 30 Minutes Stroke Is this a Stroke Patient?: No Acute Heart Failure - Is this a Heart Failure Patient?: No
== END 2019-12-22 14:37 | disposition home or self-care (01) | DRG 377 ==
LOC: ER 03:24 → EH 06:27 → ICU 07:01 → EH 07:04 → ICU 07:46 → 4S 12-18 18:56
PROVIDERS: ADMIT Anesthesiology; ATTEND Family Medicine
PROC: 5A1945Z Respiratory Ventilation, 24-96 Consecutive Hours (ICD-10-PCS; principal; 2019-12-14)
PROC: 0BH17EZ Insertion of Endotracheal Airway into Trachea, Via Natural or Artificial Opening (ICD-10-PCS; 2019-12-14)
PROC: 30233R1 Transfusion of Nonautologous Platelets into Peripheral Vein, Percutaneous Approach (ICD-10-PCS; 2019-12-14)
PROC: 30233N1 Transfusion of Nonautologous Red Blood Cells into Peripheral Vein, Percutaneous Approach (ICD-10-PCS; 2019-12-14)
DX: K29.41 Chronic atrophic gastritis with bleeding (principal); J14 Pneumonia due to Hemophilus influenzae; J15.1 Pneumonia due to Pseudomonas; J81.0 Acute pulmonary edema; D62 Acute posthemorrhagic anemia; J44.0 Chronic obstructive pulmonary disease with (acute) lower respiratory infection; J96.10 Chronic respiratory failure, unspecified whether with hypoxia or hypercapnia; Z99.11 Dependence on respirator [ventilator] status; I24.8 Other forms of acute ischemic heart disease; I82.612 Acute embolism and thrombosis of superficial veins of left upper extremity; Z78.1 Physical restraint status; E83.51 Hypocalcemia; R79.1 Abnormal coagulation profile; F10.10 Alcohol abuse, uncomplicated; M79.89 Other specified soft tissue disorders; I10 Essential (primary) hypertension; K44.9 Diaphragmatic hernia without obstruction or gangrene; F41.1 Generalized anxiety disorder; I95.89 Other hypotension; E86.1 Hypovolemia; K92.0 Hematemesis; K92.1 Melena; J41.0 Simple chronic bronchitis; R56.9 Unspecified convulsions; K29.21 Alcoholic gastritis with bleeding; F17.210 Nicotine dependence, cigarettes, uncomplicated; Z79.899 Other long term (current) drug therapy; Z79.82 Long term (current) use of aspirin
CPT/HCPCS: 36415; 36430; 51702; 70450; 71045; 78278; 80048; 80053; 80307; 82803; 82962; 83605; 83690; 83735; 83880; 84100; 85025; 85027; 85384; 85610; 85730; 86850; 86900; 86901; 86920; 87070; 87077; 87186; 87205; 93005; 93010; 93971; 94002; 94003; 94640; 96374; 96375; 99223; 99291; 99292; A9560; C9113; J0330; J0610; J0696; J1642; J1940; J1956; J2060; J2250; J2270; J2550; J3260; J3360; J3411; J3475; J3480; J3490; J7030; J7050; J7120; J7620; P9016; P9017; Q9969